=== PATIENT | male | born 1965 | race Caucasian/White ===

== ENCOUNTER 2017-03-13 16:03 | Emergency (ER) | payer OTHER, MEDICARE ==
[2017-03-13] MEDS ORDERED: ALBUTEROL SULFATE 0.083% NEB 2.5 MG/3 ML AMPUL NEB ONE (18:08)
--- NOTE | 2017-03-13 18:33 | RADIOLOGY REPORT (SQ) ---
EXAM DESCRIPTION: CHEST PA/LAT COMPLETED DATE/TIME: 03/13/2017 6:25 pm REASON FOR STUDY: cough COMPARISON: None. EXAM PARAMETERS: NUMBER OF VIEWS: two views TECHNIQUE: Digital Frontal and Lateral radiographic views of the chest acquired. RADIATION DOSE: NA LIMITATIONS: none FINDINGS: LUNGS AND PLEURA: No opacities, masses or pneumothorax. No pleural effusion. MEDIASTINUM AND HILAR STRUCTURES: No masses or contour abnormalities. HEART AND VASCULAR STRUCTURES: Heart normal size. No evidence for failure. BONES: No acute findings. HARDWARE: None in the chest. OTHER: No other significant finding. IMPRESSION: NO SIGNIFICANT RADIOGRAPHIC FINDING IN THE CHEST. TECHNICAL DOCUMENTATION: JOB ID: [id number] [employer]- All Rights Reserved
[2017-03-13 19:09] LABS: ABSOLUTE BASOPHILS # (AUTO) 0.1 10^3/uL (0.0-0.2); ABSOLUTE EOSINOPHILS # (AUTO) 0.3 10^3/uL (0.0-0.6); ABSOLUTE LYMPHOCYTES (AUTO) 2.9 10^3/uL (0.5-4.7); ABSOLUTE NEUT (AUTO) 6.7 10^3/uL (1.7-8.2); BASOPHILS % (AUTO) 1.2 % (0-2); EOSINOPHILS % (AUTO) 2.4 % (0-6); HEMATOCRIT 48.2 % (37.9-51.0); HEMOGLOBIN 16.1 g/dL (13.5-17.0); HGB HCT DIFFERENCE 0.1; LYMPHOCYTES % (AUTO) 26.4 % (13-45); MEAN CORPUSCULAR HEMOGLOBIN 31.4 pg (27.0-33.4); MEAN CORPUSCULAR HGB CONC 33.4 g/dL (32.0-36.0); MEAN CORPUSCULAR VOLUME 94 fl (80-97); MONOCYTES % (AUTO) 9.2 % (3-13); RED BLOOD COUNT 5.13 10^6/uL (4.35-5.55); SEGMENTED NEUTROPHILS % (AUTO) 60.8 % (42-78); WHITE BLOOD COUNT 11.1 10^3/uL (4.0-10.5)
[2017-03-13 19:37] LABS: ALANINE AMINOTRANSFERASE 56 U/L (21-72); ALBUMIN 4.4 g/dL (3.5-5.0); ALKALINE PHOSPHATASE 81 U/L (38-126); ANION GAP 15 (5-19); ASPARTATE AMINO TRANSFERASE 26 U/L (17-59); BILIRUBIN,DIRECT 0.4 mg/dL (0.0-0.4); BILIRUBIN,TOTAL 0.5 mg/dL (0.2-1.3); BLOOD UREA NITROGEN 17 mg/dL (7-20); CALCIUM 9.3 mg/dL (8.4-10.2); CARBON DIOXIDE 27 mmol/L (22-30); CHLORIDE 105 mmol/L (98-107); CREATININE RESULT 1.37 mg/dL (0.52-1.25); GLUCOSE 102 mg/dL (75-110); POTASSIUM 4.5 mmol/L (3.6-5.0); SODIUM 146.7 mmol/L (137-145); TOTAL PROTEIN 7.9 g/dL (6.3-8.2)
--- NOTE | 2017-03-13 19:51 | ER Document Report ---
ED General - General Chief Complaint: Cough Stated Complaint: COUGH Time Seen by Provider: 03/13/17 18:08 Mode of Arrival: Ambulatory Information source: Patient Notes: Patient reports cough and congestion for approximately 1 week. He states that his chest is felt tight. He has been productive of yellow-green sputum. It is worse with exertion and better with rest. There is no significant radiation symptoms. They have been moderate and constant. Patient denies any fevers. TRAVEL OUTSIDE OF THE [place] IN LAST 30 DAYS: No - Related Data Allergies/Adverse Reactions: No Known Allergies Allergy (Unverified 03/13/17 16:24) Past Medical History - General Information source: Patient - Social History Smoking Status: Never Smoker Frequency of alcohol use: Rare Drug Abuse: None Family History: Reviewed & Not Pertinent - Past Medical History Cardiac Medical History: Reports: Hx Heart Attack, Hx Hypercholesterolemia, Hx Hypertension Pulmonary Medical History: Denies: Hx Pneumonia Neurological Medical History: Denies: Hx Migraine, Hx Seizures Endocrine Medical History: Reports: Hx Diabetes Mellitus Type 2 Renal/ Medical History: Reports: Hx Kidney Stones. Denies: Hx Peritoneal Dialysis GI Medical History: Reports: Hx Gastroesophageal Reflux Disease, Hx Hiatal Hernia. Denies: Hx Ulcer Psychiatric Medical History: Denies: Hx Schizophrenia Past Surgical History: Reports: Hx Appendectomy, Hx Bowel Surgery - x4, Hx Cardiac Catheterization, Hx Cardiac Surgery, Hx Oral Surgery Review of Systems - Review of Systems Constitutional: Chills, Malaise. denies: Fever Cardiovascular: Chest pain, Dyspnea Respiratory: Cough, Short of breath -: Yes All other systems reviewed and negative Physical Exam - Vital signs Vitals: Temp Pulse Resp BP Pulse Ox 99.0 F 93 23 H 136/89 H 94 03/13/17 16:17 03/13/17 16:17 03/13/17 16:17 03/13/17 16:17 03/13/17 16:17 Interpretation: Hypertensive - General General appearance: Appears well, Alert - HEENT Head: Normocephalic, Atraumatic Eyes: Normal Pupils: PERRL - Respiratory Respiratory status: No respiratory distress Chest status: Nontender Breath sounds: Normal Chest palpation: Normal - Cardiovascular Rhythm: Regular Heart sounds: Normal auscultation Murmur: No - Abdominal Inspection: Normal Distension: No distension Bowel sounds: Normal Tenderness: Nontender Organomegaly: No organomegaly - Back Back: Normal, Nontender - Extremities General upper extremity: Normal inspection, Nontender, Normal color, Normal ROM , Normal temperature General lower extremity: Normal inspection, Nontender, Normal color, Normal ROM , Normal temperature, Normal weight bearing. No: Mahendra's sign - Neurological Neuro grossly intact: Yes Cognition: Normal Orientation: AAOx4 Derek Coma Scale Eye Opening: Spontaneous Derek Coma Scale Verbal: Oriented [place] Coma Scale Motor: Obeys Commands [place] Coma Scale Total: 15 Speech: Normal Motor strength normal: LUE, RUE, LLE, RLE Sensory: Normal - Psychological Associated symptoms: Normal affect, Normal mood - Skin Skin Temperature: Warm Skin Moisture: Dry Skin Color: Normal Course - Vital Signs Vital signs: Temp Pulse Resp BP Pulse Ox 99.0 F 93 20 136/89 H 94 03/13/17 16:17 03/13/17 16:17 03/13/17 17:59 03/13/17 16:17 03/13/17 16:17 - Laboratory Result Diagrams: 03/13/17 18:50 03/13/17 18:50 Laboratory results interpreted by me: 03/13/17 03/13/17 18:50 18:50 WBC 11.1 H RDW 15.0 H Sodium 146.7 H Creatinine 1.37 H Est GFR (Non-Af Amer) 55 L - Diagnostic Test Radiology reviewed: Image reviewed, Reports reviewed - nad on chest xray Discharge - Discharge Clinical Impression: URI (upper respiratory infection) Qualifiers: URI type: unspecified URI Qualified Code(s): J06.9 - Acute upper respiratory infection, unspecified Condition: Stable Disposition: HOME, SELF-CARE Instructions: Upper Respiratory Illness ([facility]) Additional Instructions: Please call your family doctor to arrange follow-up as soon as possible Prescriptions: Albuterol Sulfate [Ventolin HFA MDI 18 GM] 1 - 2 puff IH Q4H PRN #1 mdi PRN Reason: Cefdinir 300 mg PO BID #14 capsule Forms: Return to Work
[2017-03-13 20:07] VITALS: BP 144/84
--- NOTE | 2017-03-13 21:23 | EKG REPORT ---
SEVERITY:- ABNORMAL ECG - SINUS RHYTHM LOW VOLTAGE IN FRONTAL LEADS NONSPECIFIC T ABNORMALITIES, LATERAL LEADS : Confirmed by: Thania Trujillo 13-Mar-2017 21:23:09
== END 2017-03-13 20:03 | disposition home or self-care (01) ==
LOC: ER 16:03
DX: J06.9 Acute upper respiratory infection, unspecified (principal); R53.81 Other malaise; E78.00 Pure hypercholesterolemia, unspecified; I10 Essential (primary) hypertension; E11.9 Type 2 diabetes mellitus without complications; I25.2 Old myocardial infarction; Z87.442 Personal history of urinary calculi
CPT/HCPCS: 36415; 71020; 80053; 85025; 93005; 93010; 94640; 99284

== ENCOUNTER 2017-05-04 13:52 | Emergency (ER) | payer OTHER, MEDICARE ==
[2017-05-04] MEDS ORDERED: NORMAL SALINE 1000 ML 1,000 ML IV ONE (14:17)
[2017-05-04] MEDS ORDERED: MORPHINE SULFATE 10 MG/ML INJ IV ONE ×2 (14:17→16:57)
--- NOTE | 2017-05-04 14:18 | ER Document Report ---
ED Medical Screen (RME) - General Chief Complaint: Flank Pain Stated Complaint: RIGHT SIDE PAIN Time Seen by Provider: 05/04/17 14:16 Notes: Patient presents with the onset of severe right flank pain this morning. He states in the past when he had this pain it was because he was showering emboli and he ended up with damage to his kidneys spleen and heart. He states he is currently on his warfarin. He denies any history recently of lifting or trauma. TRAVEL OUTSIDE OF THE [place] IN LAST 30 DAYS: No - Related Data Allergies/Adverse Reactions: No Known Allergies Allergy (Verified 05/04/17 13:53) Past Medical History - Past Medical History Cardiac Medical History: Reports: Hx Heart Attack, Hx Hypercholesterolemia, Hx Hypertension Pulmonary Medical History: Denies: Hx Pneumonia Neurological Medical History: Denies: Hx Migraine, Hx Seizures Endocrine Medical History: Reports: Hx Diabetes Mellitus Type 2 Renal/ Medical History: Reports: Hx Kidney Stones. Denies: Hx Peritoneal Dialysis GI Medical History: Reports: Hx Gastroesophageal Reflux Disease, Hx Hiatal Hernia. Denies: Hx Ulcer Psychiatric Medical History: Denies: Hx Schizophrenia Past Surgical History: Reports: Hx Appendectomy, Hx Bowel Surgery - x4, Hx Cardiac Catheterization, Hx Cardiac Surgery, Hx Oral Surgery - Immunizations History of Influenza Vaccine for 02/2017 - 07/2017 Season: No Physical Exam - Vital signs Vitals: Temp Pulse Resp BP Pulse Ox 97.7 F 92 20 155/122 H 94 05/04/17 14:00 05/04/17 14:00 05/04/17 14:00 05/04/17 14:00 05/04/17 14:00 Course - Vital Signs Vital signs: Temp Pulse Resp BP Pulse Ox 97.7 F 92 20 155/122 H 94 05/04/17 14:00 05/04/17 14:00 05/04/17 14:00 05/04/17 14:00 05/04/17 14:00
[2017-05-04 14:41] LABS: APPEARANCE,URINE SLIGHTLY-CLOUDY; BILIRUBIN,URINE NEGATIVE (NEGATIVE); GLUCOSE, URINE NEGATIVE (NEGATIVE); KETONES,URINE NEGATIVE (NEGATIVE); LEUKOCYTE ESTERASE,URINE NEGATIVE (NEGATIVE); NITRITE,URINE NEGATIVE (NEGATIVE); PROTEIN,URINE 100 mg/dL (NEGATIVE); URINE SPECIFIC GRAVITY 1.019; UROBILINOGEN,URINE NEGATIVE mg/dL (<2.0)
[2017-05-04 14:58] LABS: ABSOLUTE BASOPHILS # (AUTO) 0.1 10^3/uL (0.0-0.2); ABSOLUTE EOSINOPHILS # (AUTO) 0.1 10^3/uL (0.0-0.6); ABSOLUTE LYMPHOCYTES (AUTO) 1.8 10^3/uL (0.5-4.7); ABSOLUTE MONOCYTES (AUTO) 0.6 10^3/uL (0.1-1.4); BASOPHILS % (AUTO) 1.4 % (0-2); HEMATOCRIT 48.1 % (37.9-51.0); HEMOGLOBIN 16.3 g/dL (13.5-17.0); HGB HCT DIFFERENCE 0.8; LYMPHOCYTES % (AUTO) 20.8 % (13-45); MEAN CORPUSCULAR HEMOGLOBIN 31.4 pg (27.0-33.4); MEAN CORPUSCULAR VOLUME 93 fl (80-97); MONOCYTES % (AUTO) 6.7 % (3-13); RED CELL DISTRIBUTION WIDTH 14.6 % (11.5-14.0); SEGMENTED NEUTROPHILS % (AUTO) 70.1 % (42-78); WHITE BLOOD COUNT 8.6 10^3/uL (4.0-10.5)
[2017-05-04 15:08] LABS: PROTHROMBIN TIME 16.4 SEC (11.4-15.4)
[2017-05-04 15:17] LABS: ALANINE AMINOTRANSFERASE 52 U/L (21-72); ALBUMIN 4.3 g/dL (3.5-5.0); ALKALINE PHOSPHATASE 84 U/L (38-126); ANION GAP 14 (5-19); ASPARTATE AMINO TRANSFERASE 26 U/L (17-59); BILIRUBIN,DIRECT 0.2 mg/dL (0.0-0.4); BILIRUBIN,TOTAL 0.4 mg/dL (0.2-1.3); BLOOD UREA NITROGEN 16 mg/dL (7-20); CALCIUM 9.5 mg/dL (8.4-10.2); CARBON DIOXIDE 26 mmol/L (22-30); CHLORIDE 104 mmol/L (98-107); CREATININE RESULT 1.26 mg/dL (0.52-1.25); GLUCOSE 159 mg/dL (75-110); POTASSIUM 4.3 mmol/L (3.6-5.0); SODIUM 143.9 mmol/L (137-145); TOTAL PROTEIN 7.8 g/dL (6.3-8.2)
--- NOTE | 2017-05-04 15:21 | ER Document Report ---
ED GI/ - General Chief Complaint: Flank Pain Stated Complaint: RIGHT SIDE PAIN Time Seen by Provider: 05/04/17 14:16 Notes: 51 years old male with a history of thrombosis, on blood thinners, presents today with left flank pain prior to arrival. Radiating to the groin. Associated with nausea no vomiting. Denies any hematuria dysuria frequency urgency. He says when he gave the urine today in the ER he saw in the collecting A small stone on the bottom. Currently feel comfortable after being given morphine. TRAVEL OUTSIDE OF THE [place] IN LAST 30 DAYS: No - Related Data Allergies/Adverse Reactions: No Known Allergies Allergy (Verified 05/04/17 13:53) Past Medical History - Social History Smoking Status: Never Smoker Chew tobacco use (# tins/day): No Frequency of alcohol use: None Drug Abuse: None Family History: Reviewed & Not Pertinent Patient has suicidal ideation: No Patient has homicidal ideation: No - Past Medical History Cardiac Medical History: Reports: Hx Heart Attack, Hx Hypercholesterolemia, Hx Hypertension Pulmonary Medical History: Denies: Hx Pneumonia Neurological Medical History: Denies: Hx Migraine, Hx Seizures Endocrine Medical History: Reports: Hx Diabetes Mellitus Type 2 Renal/ Medical History: Reports: Hx Kidney Stones. Denies: Hx Peritoneal Dialysis GI Medical History: Reports: Hx Gastroesophageal Reflux Disease, Hx Hiatal Hernia. Denies: Hx Ulcer Psychiatric Medical History: Denies: Hx Schizophrenia Past Surgical History: Reports: Hx Appendectomy, Hx Bowel Surgery - x4, Hx Cardiac Catheterization, Hx Cardiac Surgery, Hx Oral Surgery Review of Systems - Review of Systems Notes: REVIEW OF SYSTEMS: CONSTITUTIONAL : Denies fever, chills, or sweats. Denies recent illness. EENT: Denies eye, ear, throat, or mouth pain or symptoms. Denies nasal or sinus congestion or discharge. Denies throat, tongue, or mouth swelling or difficulty swallowing. CARDIOVASCULAR: Denies chest pain. Denies palpitations or racing or irregular heart beat. Denies ankle edema. RESPIRATORY: Denies cough, cold, or chest congestion. Denies shortness of breath, difficulty breathing, or wheezing. GASTROINTESTINAL: Denies abdominal pain or distention. Denies nausea, vomiting , or diarrhea. Denies blood in vomitus, stools, or per rectum. Denies black, tarry stools. Denies constipation. GENITOURINARY: Denies difficulty urinating, painful urination, burning, frequency, blood in urine, or discharge. MUSCULOSKELETAL: Denies back or neck pain or stiffness. Denies joint pain or swelling. SKIN: Denies rash, lesions or sores. HEMATOLOGIC : Denies easy bruising or bleeding. LYMPHATIC: Denies swollen, enlarged glands. NEUROLOGICAL: Denies confusion or altered mental status. Denies passing out or loss of consciousness. Denies dizziness or lightheadedness. Denies headache. Denies weakness or paralysis or loss of use of either side. Denies problems with gait or speech. Denies sensory loss, numbness, or tingling. Denies seizures. PSYCHIATRIC: Denies anxiety or stress. Denies depression, suicidal ideation, or homicidal ideation. ALL OTHER SYSTEMS REVIEWED AND NEGATIVE. Dictation was performed using [employer] voice recognition software morbidly obese PHYSICAL EXAMINATION: GENERAL: Well-appearing, well-nourished and in no acute distress. HEAD: Atraumatic, normocephalic. EYES: Pupils equal round and reactive to light, extraocular movements intact, sclera anicteric, conjunctiva are normal. ENT: Nares patent, oropharynx clear without exudates. Moist mucous membranes. NECK: Normal range of motion, supple without lymphadenopathy LUNGS: Breath sounds clear to auscultation bilaterally and equal. No wheezes rales or rhonchi. HEART: Regular rate and rhythm without murmurs Back: Right flank tenderness on palpation noted. ABDOMEN: Soft, nontender, nondistended abdomen. No guarding, no rebound. No masses appreciated. Musculoskeletal: Normal range of motion, no pitting or edema. No cyanosis. NEUROLOGICAL: Cranial nerves grossly intact. Normal speech, normal gait. Normal sensory, motor exams PSYCH: Normal mood, normal affect. SKIN: Warm, Dry, normal turgor, no rashes or lesions noted. Physical Exam - Vital signs Vitals: Temp Pulse Resp BP Pulse Ox 97.7 F 92 20 155/122 H 94 05/04/17 14:00 05/04/17 14:00 05/04/17 14:00 05/04/17 14:00 05/04/17 14:00 Course - Re-evaluation Re-evalutation: 05/04/17 17:59 Relatively comfortable - Vital Signs Vital signs: Temp Pulse Resp BP Pulse Ox 97.7 F 92 20 155/122 H 94 05/04/17 14:00 05/04/17 14:00 05/04/17 14:00 05/04/17 14:00 05/04/17 14:00 - Laboratory Result Diagrams: 05/04/17 14:40 05/04/17 14:40 Laboratory results interpreted by me: 05/04/17 05/04/17 05/04/17 14:23 14:40 14:40 RDW 14.6 H PT 16.4 H Creatinine Glucose Urine Protein 100 H Urine Blood LARGE H 05/04/17 14:40 RDW PT Creatinine 1.26 H Glucose 159 H Urine Protein Urine Blood - Diagnostic Test Radiology results interpreted by me: 05/04/17 17:59 CT abdomen stone protocol reported as intra-parenchymal stone no ureteric stone. This was explained to the patient. He requested more pain medications 1 hour ago was given morphine. Discharge - Discharge Clinical Impression: Renal stone, Anticoagulation goal of INR 1.5 to 2.5 Hematuria Qualifiers: Hematuria type: other microscopic Qualified Code(s): R31.29 - Other microscopic hematuria; R31.2 - Other microscopic hematuria Condition: Fair Disposition: HOME, SELF-CARE Instructions: Kidney Stone ([facility]) Prescriptions: Ondansetron [Zofran Odt 4 mg Tablet] 4 mg PO Q4HP PRN #10 tab.rapdis PRN Reason: Hydrocodone/Acetaminophen [Accokeek 5-325 mg Tablet] 1 tab PO BID PRN #10 tablet PRN Reason:
--- NOTE | 2017-05-04 16:50 | RADIOLOGY REPORT (SQ) ---
EXAM DESCRIPTION: CT LTD RENAL STONE PROTOCOL ON COMPLETED DATE/TIME: 05/04/2017 4:29 pm REASON FOR STUDY: Renal stone COMPARISON: None. TECHNIQUE: CT scan of the abdomen and pelvis performed without intravenous or oral contrast. Images reviewed with lung, soft tissue, and bone windows. Reconstructed coronal and sagittal MPR images revi ewed. All images stored on PACS. All CT scanners at this facility use dose modulation, iterative reconstruction, and/or weight based d osing when appropriate to reduce radiation dose to as low as reasonably achievable (ALARA). [facility]: Dose Right [facility]: CareDose [facility]: Dose Right [facility]: Teradose 4D [facility]: Smart [employer] RADIATION DOSE: CT Rad equipment meets quality standard of care and radiation dose reduction techniq ues were employed. CTDIvol: 19.2 mGy. DLP: 1178 mGy-cm.mGy. LIMITATIONS: None. FINDINGS: LOWER CHEST: No significant findings. No nodules or infiltrates. NON-CONTRASTED LIVER, SPLEEN, ADRENALS: Fatty liver, sparing along the gallbladder fossa. Hypertroph y left lobe liver, small right lobe liver. Spleen is small and nodular in appearance, question prior splenic infarct or partial splenectomy. PANCREAS: No masses. No peripancreatic inflammatory changes. GALLBLADDER: No identified stones by CT criteria. No inflammatory changes to suggest cholecystitis. RIGHT KIDNEY AND URETER: There is scarring along the right upper pole kidney, with atrophy of the upp er half of the right kidney. Wedge like scarring in the right lower pole kidney. No discrete cystic or solid lesions. There are 2 small less than 5 mm intrarenal nonobstructive stones in the right lo wer pole kidney on coronal image 15. No right ureteral calculi, or right hydronephrosis or hydrouret er. LEFT KIDNEY AND URETER: No suspicious masses. Assessment limited by lack of IV contrast. No signifi cant calcifications. No hydronephrosis or hydroureter. AORTA AND RETROPERITONEUM: No aneurysm. No retroperitoneal masses or adenopathy. BOWEL AND PERITONEAL CAVITY: No CT evidence of bowel obstruction or free intraperitoneal air or fluid . Patient is post left hemicolectomy, and partial resection of the right colon with a right-sided il eocolic anastomosis. APPENDIX: Surgically absent PELVIS, BLADDER, AND ABDOMINAL WALL:No abnormal masses. No free fluid. Bladder normal. BONES: No significant findings. OTHER: No other significant finding. IMPRESSION: Right-sided intrarenal nonobstructive stones. No right hydronephrosis or hydroureter. Left hemicolectomy, partial resection of the right colon. Fatty liver with hypertrophy of the left lobe COMMENT: Quality ID # [id number]: Final reports with documentation of one or more dose reduction techniques (e.g., Automated exposure control, adjustment of the mA and/or kV according to patient size, use of iterative reconstruction technique) TECHNICAL DOCUMENTATION: JOB ID: [id number] [email or web address]- All Rights Reserved
[2017-05-04 18:25] VITALS: BP 155/110
== END 2017-05-04 18:25 | disposition home or self-care (01) ==
LOC: ER 13:52
DX: N20.0 Calculus of kidney (principal); R31.29 Other microscopic hematuria; R10.9 Unspecified abdominal pain; R11.0 Nausea; I25.2 Old myocardial infarction; I10 Essential (primary) hypertension; E11.9 Type 2 diabetes mellitus without complications; I82.90 Acute embolism and thrombosis of unspecified vein; Z79.01 Long term (current) use of anticoagulants; Z90.49 Acquired absence of other specified parts of digestive tract; Z87.19 Personal history of other diseases of the digestive system
CPT/HCPCS: 96376; 99284; 96361; 96374; 36415; 85025; 85610; 80053; 81001; 76380; J2270; J7030

== ENCOUNTER 2017-05-11 04:19 | Emergency (ER) | payer OTHER, MEDICARE ==
[2017-05-11] MEDS ORDERED: KETOROLAC TROMETHAMINE 60 MG/2 ML SDV IM ONE (05:22)
--- NOTE | 2017-05-11 05:25 | ER Document Report ---
ED GI/ - General Chief Complaint: Flank Pain Stated Complaint: FLANK PAIN Time Seen by Provider: 05/11/17 05:17 Notes: 51 years old male comes in with right flank pain, claiming he has kidney stone. He was seen by me couple weeks ago, diagnosed as intrarenal stone on the right side, there were no ureteric stone at home. He denies any hematuria fever chills dysuria or frequency. TRAVEL OUTSIDE OF THE [place] IN LAST 30 DAYS: No - Related Data Allergies/Adverse Reactions: No Known Allergies Allergy (Verified 05/04/17 13:53) Past Medical History - Social History Smoking Status: Smoker,Current Status Unk Family History: Reviewed & Not Pertinent - Past Medical History Cardiac Medical History: Reports: Hx Heart Attack, Hx Hypercholesterolemia, Hx Hypertension Pulmonary Medical History: Denies: Hx Pneumonia Neurological Medical History: Denies: Hx Migraine, Hx Seizures Endocrine Medical History: Reports: Hx Diabetes Mellitus Type 2 Renal/ Medical History: Reports: Hx Kidney Stones. Denies: Hx Peritoneal Dialysis GI Medical History: Reports: Hx Gastroesophageal Reflux Disease, Hx Hiatal Hernia. Denies: Hx Ulcer Psychiatric Medical History: Denies: Hx Schizophrenia Past Surgical History: Reports: Hx Appendectomy, Hx Bowel Surgery - x4, Hx Cardiac Catheterization, Hx Cardiac Surgery, Hx Oral Surgery Review of Systems - Review of Systems Notes: REVIEW OF SYSTEMS: CONSTITUTIONAL : Denies fever, chills, or sweats. Denies recent illness. EENT: Denies eye, ear, throat, or mouth pain or symptoms. Denies nasal or sinus congestion or discharge. Denies throat, tongue, or mouth swelling or difficulty swallowing. CARDIOVASCULAR: Denies chest pain. Denies palpitations or racing or irregular heart beat. Denies ankle edema. RESPIRATORY: Denies cough, cold, or chest congestion. Denies shortness of breath, difficulty breathing, or wheezing. GASTROINTESTINAL: Denies abdominal pain or distention. Denies nausea, vomiting , or diarrhea. Denies blood in vomitus, stools, or per rectum. Denies black, tarry stools. Denies constipation. GENITOURINARY: Denies difficulty urinating, painful urination, burning, frequency, blood in urine, or discharge. MUSCULOSKELETAL: Denies back or neck pain or stiffness. Denies joint pain or swelling. SKIN: Denies rash, lesions or sores. HEMATOLOGIC : Denies easy bruising or bleeding. LYMPHATIC: Denies swollen, enlarged glands. NEUROLOGICAL: Denies confusion or altered mental status. Denies passing out or loss of consciousness. Denies dizziness or lightheadedness. Denies headache. Denies weakness or paralysis or loss of use of either side. Denies problems with gait or speech. Denies sensory loss, numbness, or tingling. Denies seizures. PSYCHIATRIC: Denies anxiety or stress. Denies depression, suicidal ideation, or homicidal ideation. ALL OTHER SYSTEMS REVIEWED AND NEGATIVE. Dictation was performed using [employer] voice recognition software PHYSICAL EXAMINATION: GENERAL: Well-appearing, well-nourished and in no acute distress. HEAD: Atraumatic, normocephalic. EYES: Pupils equal round and reactive to light, extraocular movements intact, sclera anicteric, conjunctiva are normal. ENT: Nares patent, oropharynx clear without exudates. Moist mucous membranes. NECK: Normal range of motion, supple without lymphadenopathy LUNGS: Breath sounds clear to auscultation bilaterally and equal. No wheezes rales or rhonchi. HEART: Regular rate and rhythm without murmurs ABDOMEN: Soft, nontender, nondistended abdomen. No guarding, no rebound. No masses appreciated. Examination of the flank: In appropriate response to pain by gentle touch on the right flank Musculoskeletal: Normal range of motion, no pitting or edema. No cyanosis. NEUROLOGICAL: Cranial nerves grossly intact. Normal speech, normal gait. Normal sensory, motor exams PSYCH: Normal mood, normal affect. SKIN: Warm, Dry, normal turgor, no rashes or lesions noted. Physical Exam - Vital signs Vitals: Temp Pulse Resp BP Pulse Ox 97.9 F 84 20 179/105 H 93 05/11/17 04:31 05/11/17 04:31 05/11/17 04:31 05/11/17 04:31 05/11/17 04:31 Course - Re-evaluation Re-evalutation: 05/11/17 07:50 Urine tox screen indicated that he is on benzodiazepine and opioids. Patient denied taking any opioid medications. - Vital Signs Vital signs: Temp Pulse Resp BP Pulse Ox 97.9 F 84 20 179/105 H 93 05/11/17 04:31 05/11/17 04:31 05/11/17 04:31 05/11/17 04:31 05/11/17 04:31 - Laboratory Result Diagrams: 05/11/17 05:55 05/11/17 05:55 Laboratory results interpreted by me: 05/11/17 05/11/17 05/11/17 05:09 05:55 05:55 WBC 12.1 H RDW 14.5 H Absolute Neutrophils 9.2 H Creatinine 1.34 H Est GFR (Non-Af Amer) 56 L Glucose 183 H Urine Protein 100 H Urine Blood LARGE H Discharge - Discharge Clinical Impression: Chronic pain syndrome Rheumatoid arthritis Qualifiers: Rheumatoid arthritis location: multiple sites Rheumatoid factor presence: unspecified presence Qualified Code(s): M06.9 - Rheumatoid arthritis, unspecified Sinusitis Qualifiers: Sinusitis location: maxillary Condition: Fair Disposition: HOME, SELF-CARE Instructions: Rheumatoid Arthritis ([facility]) Prescriptions: Methylprednisolone [Medrol Dosepack (4 mg/Tab) 21 Tab/Dosepak] 4 mg PO ASDIR PRN #21 tab.ds.pk PRN Reason:
[2017-05-11 05:46] LABS: APPEARANCE,URINE CLOUDY; BILIRUBIN,URINE NEGATIVE (NEGATIVE); GLUCOSE, URINE NEGATIVE (NEGATIVE); KETONES,URINE NEGATIVE (NEGATIVE); LEUKOCYTE ESTERASE,URINE NEGATIVE (NEGATIVE); NITRITE,URINE NEGATIVE (NEGATIVE); PROTEIN,URINE 100 mg/dL (NEGATIVE); URINE SPECIFIC GRAVITY 1.028; UROBILINOGEN,URINE NEGATIVE mg/dL (<2.0)
[2017-05-11 06:20] LABS: ABSOLUTE BASOPHILS # (AUTO) 0.1 10^3/uL (0.0-0.2); ABSOLUTE EOSINOPHILS # (AUTO) 0.1 10^3/uL (0.0-0.6); ABSOLUTE LYMPHOCYTES (AUTO) 1.8 10^3/uL (0.5-4.7); ABSOLUTE MONOCYTES (AUTO) 0.9 10^3/uL (0.1-1.4); ABSOLUTE NEUT (AUTO) 9.2 10^3/uL (1.7-8.2); BASOPHILS % (AUTO) 0.8 % (0-2); EOSINOPHILS % (AUTO) 1.1 % (0-6); HEMOGLOBIN 15.9 g/dL (13.5-17.0); HGB HCT DIFFERENCE 0.7; LYMPHOCYTES % (AUTO) 14.7 % (13-45); MEAN CORPUSCULAR HEMOGLOBIN 31.3 pg (27.0-33.4); MEAN CORPUSCULAR HGB CONC 33.8 g/dL (32.0-36.0); MEAN CORPUSCULAR VOLUME 93 fl (80-97); MONOCYTES % (AUTO) 7.6 % (3-13); RED BLOOD COUNT 5.07 10^6/uL (4.35-5.55); RED CELL DISTRIBUTION WIDTH 14.5 % (11.5-14.0); SEGMENTED NEUTROPHILS % (AUTO) 75.8 % (42-78); WHITE BLOOD COUNT 12.1 10^3/uL (4.0-10.5)
[2017-05-11 06:38] LABS: ALANINE AMINOTRANSFERASE 54 U/L (21-72); ALBUMIN 4.1 g/dL (3.5-5.0); ALKALINE PHOSPHATASE 86 U/L (38-126); ANION GAP 13 (5-19); ASPARTATE AMINO TRANSFERASE 35 U/L (17-59); BILIRUBIN,DIRECT 0.3 mg/dL (0.0-0.4); BILIRUBIN,TOTAL 0.4 mg/dL (0.2-1.3); BLOOD UREA NITROGEN 18 mg/dL (7-20); CALCIUM 9.7 mg/dL (8.4-10.2); CARBON DIOXIDE 25 mmol/L (22-30); CHLORIDE 104 mmol/L (98-107); CREATININE RESULT 1.34 mg/dL (0.52-1.25); GLUCOSE 183 mg/dL (75-110); POTASSIUM 3.9 mmol/L (3.6-5.0); SODIUM 142.1 mmol/L (137-145); TOTAL PROTEIN 7.4 g/dL (6.3-8.2)
--- NOTE | 2017-05-11 06:40 | RADIOLOGY REPORT (SQ) ---
EXAM DESCRIPTION: CT LTD RENAL STONE PROTOCOL ON CLINICAL HISTORY: 51 years Male, R Flank Pain, Eval for kidney stone COMPARISON: None. TECHNIQUE: No contrast. Coronal and sagittal reformat. This exam was performed according to our departmental dose-optimization program, which includes automated exposure control, adjustment of the mA and/or kV according to patient size and/or use of iterative reconstruction technique. FINDINGS: A 0.3 cm right mid ureteral stone at the L4 level, mild right hydronephrosis, minimal right hydroureter, moderate right perinephric fat stranding, mild periureteral fat stranding, moderate right renal scar and atrophy of the upper pole. 0.2 cm right renal stone. Mild hepatic steatosis. Macrolobulated small-moderate spleen which may indicate partial involution. Mild diffuse sigmoid bowel wall thickening. Partial colon resection. Scattered bowel loops are closely positioned/adherent to the peritoneum of the left paracentral abdomen may indicate adhesive disease. Mild lymphadenopathy in bilateral anterior pelvis measuring up to 1.9 cm on the right. Small coronary calcification. Mild lower lumbar spondylosis. Inferior chest, pancreas, adrenals, gastrointestinal tract, pelvic organs, vasculature, and musculoskeleton appear otherwise unremarkable. IMPRESSION: 1. A 0.3 cm right mid ureteral stone with low-grade obstruction. 2. Mild sigmoid colitis pattern.
[2017-05-11 06:48] LABS: URINE BARBITURATES SCREEN NEGATIVE; URINE METHADONE SCREEN NEGATIVE; URINE OPIATES LOW UNCONFIRMED POSITIVE; URINE PHENCYCLIDINE SCREEN NEGATIVE
[2017-05-11] MEDS ORDERED: ONDANSETRON HCL INJ/PF 4 MG/2 ML SDV PO ONE (07:59)
[2017-05-11] MEDS ORDERED: MORPHINE SULFATE 10 MG/ML INJ IM ONE (07:59)
[2017-05-11 08:50] VITALS: BP 157/91
[2017-05-11] MEDS ORDERED: ONDANSETRON 4 MG TAB.RAPDIS PO ONE (08:58)
[2017-05-11] MEDS ORDERED: ONDANSETRON 4 MG TAB.RAPDIS ONE (09:00)
== END 2017-05-11 09:11 | disposition home or self-care (01) ==
LOC: ER 04:19
DX: R10.9 Unspecified abdominal pain (principal); M06.9 Rheumatoid arthritis, unspecified; G89.4 Chronic pain syndrome; I10 Essential (primary) hypertension; I25.2 Old myocardial infarction; E11.9 Type 2 diabetes mellitus without complications; Z90.49 Acquired absence of other specified parts of digestive tract
CPT/HCPCS: 99284; 96372; 36415; 85025; 80053; 81001; 80307; 76380; J1885; S0119; J2270

== ENCOUNTER 2017-06-21 12:52 | Emergency (ER) | payer OTHER, MEDICARE ==
[2017-06-21 13:00] VITALS: BP 135/98
[2017-06-21] MEDS ORDERED: PREDNISONE 20 MG TABLET PO ONE (13:35)
--- NOTE | 2017-06-21 13:39 | ER Document Report ---
HPI - HPI Patient complains to provider of: Right ankle pain Onset: Other - 2 days Onset/Duration: Persistent Quality of pain: Achy Pain Level: 4 Context: Patient presents complaining of right ankle pain for the past 2 days. Patient denies any fever or injury. Patient states he had a similar episode several months ago and is concerned that he may have gout. Associated Symptoms: Other - Right ankle pain. denies: Fever Exacerbated by: Standing, Movement, Walking Relieved by: Denies Similar symptoms previously: Yes Recently seen / treated by doctor: No - ROS ROS below otherwise negative: Yes Systems Reviewed and Negative: Yes All other systems reviewed and negative - CONSTITUTIONAL Constitutional: DENIES: Fever, Chills - GASTROINTESTINAL Gastrointestinal: DENIES: Nausea - MUSCULOSKELETAL Musculoskeletal: REPORTS: Extremity pain. DENIES: Swelling - DERM Skin Color: Normal Skin Problems: None Past Medical History - General Information source: Patient - Social History Smoking Status: Never Smoker Frequency of alcohol use: None Drug Abuse: None Occupation: None Lives with: Family Family History: Reviewed & Not Pertinent - Past Medical History Cardiac Medical History: Reports: Hx Heart Attack, Hx Hypercholesterolemia, Hx Hypertension Pulmonary Medical History: Denies: Hx Pneumonia Neurological Medical History: Denies: Hx Migraine, Hx Seizures Endocrine Medical History: Reports: Hx Diabetes Mellitus Type 2 Renal/ Medical History: Reports: Hx Kidney Stones. Denies: Hx Peritoneal Dialysis GI Medical History: Reports: Hx Gastroesophageal Reflux Disease, Hx Hiatal Hernia. Denies: Hx Ulcer Psychiatric Medical History: Denies: Hx Schizophrenia Past Surgical History: Reports: Hx Appendectomy, Hx Bowel Surgery - x4, Hx Cardiac Catheterization, Hx Cardiac Surgery, Hx Oral Surgery Vertical Provider Document - CONSTITUTIONAL Agree With Documented VS: Yes Exam Limitations: No Limitations General Appearance: WD/WN, No Apparent Distress - INFECTION CONTROL TRAVEL OUTSIDE OF THE [place] IN LAST 30 DAYS: No - HEENT HEENT: Atraumatic, Normocephalic - NECK Neck: Normal Inspection, Supple - RESPIRATORY Respiratory: Breath Sounds Normal, No Respiratory Distress O2 Sat by Pulse Oximetry: 94 - CARDIOVASCULAR Cardiovascular: Regular Rate, Regular Rhythm Pulses: Normal: Dorsalis pedis - BACK Back: Normal Inspection - MUSCULOSKELETAL/EXTREMETIES Musculoskeletal/Extremeties: MAEW, FROM, Tender - Right ankle tenderness over medial malleolar area and posterior ankle, no edema, no erythema, No Edema. negative: Eccymosis - NEURO Level of Consciousness: Awake, Alert, Appropriate Motor/Sensory: No Motor Deficit - DERM Integumentary: Warm, Dry, No Rash Course - Re-evaluation Re-evalutation: 06/21/17 13:36 Patient presents with right ankle tenderness without history of trauma. Normal skin color and temperature overlying joint. No concern for septic joint. Patient states that he ate foods that he suspects may have triggered a gout attack. Patient denies any personal history of gout but does report a family history of gout. Patient additionally states he had a similar episode to this a few months ago and was treated with anti-inflammatory medication which helped his symptoms. Patient does have hydrocodone at home to take for pain. Review of patient's previous records demonstrates that he has had some renal insufficiency. Will instead place patient on short course of prednisone at this time - Vital Signs Vital signs: Temp Pulse Resp BP Pulse Ox 98.2 F 93 20 135/98 H 94 06/21/17 12:58 06/21/17 12:58 06/21/17 12:58 06/21/17 12:58 06/21/17 12:58 Discharge - Discharge Clinical Impression: Right ankle pain Qualifiers: Chronicity: unspecified Qualified Code(s): M25.571 - Pain in right ankle and joints of right foot Condition: Stable Disposition: HOME, SELF-CARE Instructions: Gout ([facility]), Gout Diet ([facility]), Steroid Medication Additional Instructions: Return immediately for any new or worsening symptoms Followup with your primary care provider, call tomorrow to make a followup appointment Avoid foods that may trigger a gout attack, these are foods that are high in purine Take your pain medication that you have at home as prescribed Prescriptions: Prednisone [Deltasone 20 mg Tablet] 2 tab PO DAILY 4 Days tablet Walker [Folding Walker] 1 each MC ASDIR PRN #1 each PRN Reason: Referrals: [facility] [Provider Group] - Follow up tomorrow
== END 2017-06-21 13:50 | disposition home or self-care (01) ==
LOC: ER 12:52
DX: M25.571 Pain in right ankle and joints of right foot (principal); I10 Essential (primary) hypertension; E11.9 Type 2 diabetes mellitus without complications; Z82.69 Family history of other diseases of the musculoskeletal system and connective tissue
CPT/HCPCS: 99283; J7512

== ENCOUNTER 2017-09-01 00:38 | Emergency (ER) | payer OTHER, MEDICARE ==
[2017-09-01] MEDS ORDERED: ACETAMINOPHEN 325 MG TABLET PO ONE (01:39)
[2017-09-01] MEDS ORDERED: ONDANSETRON HCL INJ/PF 4 MG/2 ML SDV IV ONE (01:39)
[2017-09-01] MEDS ORDERED: NORMAL SALINE 1000 ML 1,000 ML IV ONE ×2 (01:39→06:34)
--- NOTE | 2017-09-01 01:41 | ER Document Report ---
ED GI/ - General Chief Complaint: Nausea/Vomiting/Diarrhea Stated Complaint: VOMITING Time Seen by Provider: 09/01/17 01:31 Mode of Arrival: Ambulatory Information source: Patient Notes: Patient presents complaining of diarrhea for the past 4 days. Patient states that he will typically have 10 episodes a day. Patient reports vomiting one time today which prompted his ER visit. Patient denies any abdominal pain, urinary symptoms. Patient denies any blood in vomit or stool. Patient does complain of mild headache today. TRAVEL OUTSIDE OF THE [place] IN LAST 30 DAYS: No - HPI Patient complains to provider of: Diarrhea, Vomiting. No: Abdominal pain Onset: Other - Diarrhea 4 days Timing/Duration: Persistent Quality of pain: Achy Pain Level: 1 Associated symptoms: Diarrhea, Nausea, Vomiting. denies: Chest pain, Constipation, Urinary hesitancy, Urinary frequency Exacerbated by: Denies Relieved by: Denies Similar symptoms previously: No Recently seen / treated by doctor: No - Related Data Allergies/Adverse Reactions: No Known Allergies Allergy (Verified 06/21/17 13:38) Past Medical History - General Information source: Patient - Social History Smoking Status: Never Smoker Chew tobacco use (# tins/day): No Frequency of alcohol use: Social Drug Abuse: None Occupation: Retired Lives with: Family Family History: Reviewed & Not Pertinent Patient has suicidal ideation: No Patient has homicidal ideation: No - Past Medical History Cardiac Medical History: Reports: Hx Heart Attack, Hx Hypercholesterolemia, Hx Hypertension Pulmonary Medical History: Denies: Hx Pneumonia Neurological Medical History: Denies: Hx Migraine, Hx Seizures Endocrine Medical History: Reports: Hx Diabetes Mellitus Type 2 Renal/ Medical History: Reports: Hx Kidney Stones. Denies: Hx Peritoneal Dialysis GI Medical History: Reports: Hx Gastroesophageal Reflux Disease, Hx Hiatal Hernia. Denies: Hx Ulcer Psychiatric Medical History: Denies: Hx Schizophrenia Past Surgical History: Reports: Hx Appendectomy, Hx Bowel Surgery - x4, Hx Cardiac Catheterization, Hx Cardiac Surgery, Hx Oral Surgery Review of Systems - Review of Systems Constitutional: No symptoms reported. denies: Fever EENT: No symptoms reported Cardiovascular: No symptoms reported. denies: Chest pain Respiratory: No symptoms reported. denies: Cough, Short of breath Gastrointestinal: Diarrhea, Nausea, Vomiting. denies: Abdominal pain, Blood in vomit, Black stools, Rectal bleeding Genitourinary: No symptoms reported. denies: Dysuria, Flank pain Male Genitourinary: No symptoms reported Musculoskeletal: No symptoms reported. denies: Back pain Skin: No symptoms reported Hematologic/Lymphatic: No symptoms reported Neurological/Psychological: Headaches. denies: Confusion, Weakness Physical Exam - Vital signs Vitals: Temp Pulse Resp BP Pulse Ox 100.1 F 101 H 24 H 133/76 H 92 09/01/17 00:54 09/01/17 00:54 09/01/17 00:54 09/01/17 00:54 09/01/17 00:54 - General General appearance: Appears well, Alert In distress: None - HEENT Head: Normocephalic Eyes: Normal Nasal: Normal Mouth/Lips: Normal Mucous membranes: Normal Neck: Normal, Supple. No: Lymphadenopathy - Respiratory Respiratory status: No respiratory distress Chest status: Nontender Breath sounds: Normal. No: Rales, Rhonchi, Stridor, Wheezing Chest palpation: Normal - Cardiovascular Rhythm: Regular Heart sounds: S1 appreciated, S2 appreciated Murmur: No - Abdominal Inspection: Morbidly Obese, Other - scars from previous surgeries Distension: No distension Bowel sounds: Normal Tenderness: Tender - RUQ. No: McBurney's point, Guarding Organomegaly: No organomegaly - Back Back: Normal, Nontender. No: CVA tenderness - Extremities General upper extremity: Normal inspection, Normal ROM General lower extremity: Normal inspection, Normal ROM - Neurological Neuro grossly intact: Yes Cognition: Normal Derek Coma Scale Eye Opening: Spontaneous [place] Coma Scale Verbal: Oriented Derek Coma Scale Motor: Obeys Commands [place] Coma Scale Total: 15 - Psychological Associated symptoms: Normal affect, Normal mood - Skin Skin Temperature: Warm Skin Moisture: Dry Skin Color: Normal Course - Re-evaluation Re-evalutation: 09/01/17 06:[address] Monroy regarding patient presentation, reviewed patient's diagnostic tests. Recommends treating with Imodium and giving patient good return precautions. 09/01/17 06:34 Patient snoring, patient arouses easily to voice. Patient denies any nausea or vomiting or diarrhea at this time. Patient encouraged to obtain stool specimen if he has to have diarrhea while here today. Discussed results of patient's diagnostic tests with him. Urinalysis specimen collected. 09/01/17 08:03 IV fluids continue to infuse, patient then will be discharged. Patient and family agreeable with this discharge plan of care. Patient encouraged to CPAP machine at home every night given his very severe sleep apnea. Handoff report given to Sherice Mota PRESSFITTER. - Vital Signs Vital signs: Temp Pulse Resp BP Pulse Ox 98.5 F 101 H 27 H 138/93 H 94 09/01/17 07:39 09/01/17 00:54 09/01/17 07:24 09/01/17 07:24 09/01/17 07:24 - Laboratory Result Diagrams: 09/01/17 01:45 09/01/17 01:45 Laboratory results interpreted by me: 09/01/17 09/01/17 09/01/17 01:45 01:45 06:10 RDW 15.2 H Seg Neutrophils % 82.3 H Lymphocytes % 9.1 L Sodium 145.7 H Glucose 162 H Direct Bilirubin 0.5 H Lipase 894.1 H Urine Protein 30 H Labs- Entire Visit 09/01/17 09/01/17 09/01/17 01:45 01:45 06:10 WBC 8.1 RBC 4.99 Hgb 14.9 Hct 45.6 MCV 91 MCH 29.8 MCHC 32.6 RDW 15.2 H Plt Count 226 Seg Neutrophils % 82.3 H Lymphocytes % 9.1 L Monocytes % 6.8 Eosinophils % 1.2 Basophils % 0.6 Absolute Neutrophils 6.6 Absolute Lymphocytes 0.7 Absolute Monocytes 0.5 Absolute Eosinophils 0.1 Absolute Basophils 0.0 Sodium 145.7 H Potassium 3.7 Chloride 107 Carbon Dioxide 26 Anion Gap 13 BUN 17 Creatinine 1.10 Est GFR ( Amer) > 60 Est GFR (Non-Af Amer) > 60 Glucose 162 H Calcium 8.6 Total Bilirubin 0.8 Direct Bilirubin 0.5 H Neonat Total Bilirubin Not Reportable Neonat Direct Bilirubin Not Reportable Neonat Indirect Bili Not Reportable AST 31 ALT 43 Alkaline Phosphatase 70 Total Protein 6.9 Albumin 3.8 Lipase 894.1 H Urine Color YELLOW Urine Appearance SLIGHTLY-CLOUDY Urine pH 5.0 Ur Specific [place] 1.045 Urine Protein 30 H Urine Glucose (UA) NEGATIVE Urine Ketones NEGATIVE Urine Blood NEGATIVE Urine Nitrite NEGATIVE Urine Bilirubin NEGATIVE Urine Urobilinogen NEGATIVE Ur Leukocyte Esterase NEGATIVE Urine WBC (Auto) 0 Urine RBC (Auto) 1 Calcium Oxalate Cr Auto RARE Urine Mucus (Auto) RARE Urine Ascorbic Acid NEGATIVE - Diagnostic Test Radiology reviewed: Reports reviewed Discharge - Discharge Clinical Impression: Pancreatitis Qualifiers: Chronicity: acute Pancreatitis type: unspecified pancreatitis type Acute pancreatitis complication: unspecified Qualified Code(s): K85.90 - Acute pancreatitis without necrosis or infection, unspecified Diarrhea Qualifiers: Diarrhea type: unspecified type Qualified Code(s): R19.7 - Diarrhea, unspecified Nausea & vomiting Qualifiers: Vomiting type: unspecified Vomiting Intractability: non-intractable Qualified Code(s): R11.2 - Nausea with vomiting, unspecified Sleep apnea Qualifiers: Sleep apnea type: unspecified type Qualified Code(s): G47.30 - Sleep apnea, unspecified Condition: Stable Disposition: HOME, SELF-CARE Instructions: Antinausea Medication ([facility]), Diarrhea, Nonspecific ([facility]), Intravenous (IV) Fluids ([facility]), Pancreatitis ([facility]), Vomiting ([facility]) Additional Instructions: Return immediately for any new or worsening symptoms Followup with your primary care provider, call tomorrow to make a followup appointment You should be on a clear liquid diet and advance your diet slowly You should return for any increased abdominal pain, persistent vomiting, yellowing of the skin or eyes, fever or any other concerning symptoms Prescriptions: Loperamide HCl [Imodium 2 mg Capsule] 2 mg PO Q4HP PRN #12 cap PRN Reason: Ondansetron HCl [Zofran 4 mg Tablet] 1 - 2 tab PO Q6 PRN #15 tablet PRN Reason: Forms: Follow-Up Laboratory Testing Referrals: [facility] [Provider Group] - Follow up as needed
[2017-09-01 01:59] LABS: ABSOLUTE EOSINOPHILS # (AUTO) 0.1 10^3/uL (0.0-0.6); ABSOLUTE LYMPHOCYTES (AUTO) 0.7 10^3/uL (0.5-4.7); ABSOLUTE MONOCYTES (AUTO) 0.5 10^3/uL (0.1-1.4); ABSOLUTE NEUT (AUTO) 6.6 10^3/uL (1.7-8.2); BASOPHILS % (AUTO) 0.6 % (0-2); EOSINOPHILS % (AUTO) 1.2 % (0-6); HEMATOCRIT 45.6 % (37.9-51.0); HEMOGLOBIN 14.9 g/dL (13.5-17.0); LYMPHOCYTES % (AUTO) 9.1 % (13-45); MEAN CORPUSCULAR HEMOGLOBIN 29.8 pg (27.0-33.4); MEAN CORPUSCULAR HGB CONC 32.6 g/dL (32.0-36.0); MEAN CORPUSCULAR VOLUME 91 fl (80-97); MONOCYTES % (AUTO) 6.8 % (3-13); PLATELET COUNT 226 10^3/uL (150-450); RED BLOOD COUNT 4.99 10^6/uL (4.35-5.55); RED CELL DISTRIBUTION WIDTH 15.2 % (11.5-14.0); SEGMENTED NEUTROPHILS % (AUTO) 82.3 % (42-78); TOTAL CELLS COUNTED % (AUTO) 100 %; WHITE BLOOD COUNT 8.1 10^3/uL (4.0-10.5)
[2017-09-01 02:16] LABS: ALANINE AMINOTRANSFERASE 43 U/L (21-72); ALBUMIN 3.8 g/dL (3.5-5.0); ALKALINE PHOSPHATASE 70 U/L (38-126); ANION GAP 13 (5-19); ASPARTATE AMINO TRANSFERASE 31 U/L (17-59); BILIRUBIN,DIRECT 0.5 mg/dL (0.0-0.4); BILIRUBIN,TOTAL 0.8 mg/dL (0.2-1.3); BLOOD UREA NITROGEN 17 mg/dL (7-20); CALCIUM 8.6 mg/dL (8.4-10.2); CARBON DIOXIDE 26 mmol/L (22-30); CHLORIDE 107 mmol/L (98-107); GLUCOSE 162 mg/dL (75-110); LIPASE 894.1 U/L (23-300); POTASSIUM 3.7 mmol/L (3.6-5.0); SODIUM 145.7 mmol/L (137-145); TOTAL PROTEIN 6.9 g/dL (6.3-8.2)
--- NOTE | 2017-09-01 03:55 | RADIOLOGY REPORT (SQ) ---
EXAM DESCRIPTION: U/S ABDOMEN LIMITED W/O DOP CLINICAL HISTORY: 52 years, Male, RUQ pain COMPARISON: CT, 05/11/2017. LIMITATIONS: As below. FINDINGS: Moderate hepatic steatosis and 10 cm right kidney partially obscured. There is nonvisualization of remaining structures due to body habitus, bowel gas, and likely abdominal wall scar. IMPRESSION: Nondiagnostic exam. Moderate hepatic steatosis.
--- NOTE | 2017-09-01 05:53 | RADIOLOGY REPORT (SQ) ---
EXAM DESCRIPTION: CT ABD/PELVIS WITH IV ONLY CLINICAL HISTORY: 52 years Male, RUQ pain, +v/d, elevated lipase COMPARISON: 05.11.17 TECHNIQUE: No contrast. Coronal and sagittal reformat. This exam was performed according to our departmental dose-optimization program, which includes automated exposure control, adjustment of the mA and/or kV according to patient size and/or use of iterative reconstruction technique. FINDINGS: No free fluid. No obstruction. Pancreas has a normal CT appearance, as queried. Moderate hepatic steatosis. Small coronary arterial calcification. Macrolobulated spleen with likely benign 2.8 cm low-attenuation component not definitively characterized without suspicious interval change. Moderate right renal scar is, 0.3 cm right renal stone. Possible adhesive disease of small bowel associated with the anterior peritoneum. Minimal fat inflammation and adjacent chronic small mesenteric calcification of the mid abdomen, stable. Suture material associated with the right colon. No appendicitis. Mild lower lumbar spondylosis. Inferior thorax, gallbladder, adrenals, remaining renal system, gastrointestinal tract, pelvic organs, lymphatics, vasculature, and musculoskeleton appear otherwise unremarkable. IMPRESSION: No acute findings.
[2017-09-01] MEDS ORDERED: LOPERAMIDE HCL 2 MG CAPSULE PO ONE (06:03)
[2017-09-01 06:45] LABS: APPEARANCE,URINE SLIGHTLY-CLOUDY; BILIRUBIN,URINE NEGATIVE (NEGATIVE); CALCIUM OXALATE CRYSTALS,URINE RARE /HPF; COLOR,URINE YELLOW; GLUCOSE, URINE NEGATIVE (NEGATIVE); KETONES,URINE NEGATIVE (NEGATIVE); LEUKOCYTE ESTERASE,URINE NEGATIVE (NEGATIVE); NITRITE,URINE NEGATIVE (NEGATIVE); PROTEIN,URINE 30 mg/dL (NEGATIVE); URINE SPECIFIC GRAVITY 1.045; UROBILINOGEN,URINE NEGATIVE mg/dL (<2.0)
[2017-09-01 08:33] VITALS: BP 132/81
== END 2017-09-01 08:33 | disposition home or self-care (01) ==
LOC: ER 00:38
DX: K85.90 Acute pancreatitis without necrosis or infection, unspecified (principal); G47.30 Sleep apnea, unspecified; R11.2 Nausea with vomiting, unspecified; R19.7 Diarrhea, unspecified; R51 Headache; I10 Essential (primary) hypertension; E11.9 Type 2 diabetes mellitus without complications
CPT/HCPCS: 99284; 96361; 96374; 36415; 87040; 83690; 85025; 80053; 81001; 76705; 74177; J2405; J7030

== ENCOUNTER 2018-01-25 05:36 | Observation (INO) | payer OTHER, MEDICARE ==
[2018-01-25] MEDS ORDERED: KETOROLAC TROMETHAMINE INJ/PF 30 MG/1 ML SDV ONE (08:51)
--- NOTE | 2018-01-25 10:24 | ER Document Report ---
Doctor's Note Notes: 01/25/18 10:23 Room 14: This is a male patient in his 50s who presents with severe right flank pain. History of kidney stones. Peeing blood. Has had this happen several times. Positive for nausea and vomiting as well. Pain radiates into his testicle. Pain is rated as a 5/5 on a numeric pain scale. Cannot get comfortable. Denies any other major symptoms at this time. Past medical history: Kidney stone, hypertension, diabetes, gout, blood clots Past surgical history: Unremarkable Family history: Reviewed and unremarkable Social history: Denies any alcohol, tobacco, drug use Review of systems: Constitutional: denies: Chills, Diaphoresis, Fever, Malaise, Weakness EENT: denies: Eye discharge, Blurred vision, Tearing, Double vision, Nose congestion, Nose discharge, Throat swelling, Mouth pain Cardiovascular: denies: Palpitations, Heart racing, Orthopnea, Dyspnea, Chest pain Respiratory: denies: Cough, Hurts to breathe, Wheezing, Shortness of breath Gastrointestinal: denies: Of right flank pain, nausea, vomiting. Denies any blood in the stool or black tarry colored stools. Genitourinary: Difficult for the following: Right flank pain, hematuria. Denies any penile discharge. Does have some pain that radiates into the testicle but no testicular pain. Musculoskeletal: denies: Joint pain, Joint swelling, Muscle pain, Muscle stiffness, back pain Hematologic/Lymphatic: denies: Anemia, Easy bleeding, Easy bruising, Blood clots Neurological/Psychological: denies: Confusion, Dementia, Depression, Loss of consciousness Skin: No lesions, no masses, no skin breakdown, no abscesses Physical exam: General: Alert no acute distress, large Pickwickian individual HEENT: Atraumatic, normocephalic, pupils equal round react to light and accommodation, extraocular muscles are intact, nose is non tender, posterior pharynx is without erythema or exudate. Tongue is unremarkable Heart: Heart with regular rate and rhythm, no murmurs, no rubs, no clicks Lungs: Lungs clear to auscultation bilaterally, no wheezes, rhonchi, rales Abdomen: Abdomen is soft, nontender, nondistended, normal bowel sounds Neuro: cranial nerves II through XII intact, reflexes intact, sensation intact, Extremities:Moving all extremities. Equal strength bilaterally in the upper lower extremities. No significant deformity Skin: No lesions. Skin intact Psych: Normal insight. Normal judgment Discharge - Discharge Clinical Impression: Kidney stone on right side Respiratory failure Qualifiers: Chronicity: acute Respiratory failure complication: hypercapnia Qualified Code( s): J96.02 - Acute respiratory failure with hypercapnia Condition: Fair Disposition: ADMITTED INPATIENT Admitting Provider: [facility] Unit Admitted: [facility] Course - Re-evaluation Re-evalutation: 01/25/18 10:29 Abdomen/Pelvis CT 01/25/18 00:00 IMPRESSION: Tiny distal right ureteral calculi, causing mild right hydronephrosis and hydroureter. 01/25/18 10:47 Abdomen/Pelvis CT 01/25/18 00:00 IMPRESSION: Tiny distal right ureteral calculi, causing mild right hydronephrosis and hydroureter. Patient feeling much better at this time. Small right distal ureteral calculi. Will prescribe pain medication, nausea medicine and some Flomax. Recommend follow-up his primary care doctor. Will culture urine 01/25/18 12:30 Laboratory 01/25/18 01/25/18 01/25/18 05:57 05:57 07:59 WBC 9.3 RBC 5.03 Hgb 15.2 Hct 45.5 MCV 91 MCH 30.2 MCHC 33.4 RDW 14.8 H Plt Count 263 Seg Neutrophils % 60.1 Lymphocytes % 29.2 Monocytes % 8.1 Eosinophils % 1.2 Basophils % 1.4 Absolute Neutrophils 5.6 Absolute Lymphocytes 2.7 Absolute Monocytes 0.8 Absolute Eosinophils 0.1 Absolute Basophils 0.1 PT 13.7 INR 1.00 Carbonic Acid HCO3/H2CO3 Ratio ABG pH ABG pCO2 ABG pO2 ABG HCO3 ABG Total CO2 ABG O2 Saturation ABG Base Excess FiO2 Sodium 141.1 Potassium 4.2 Chloride 106 Carbon Dioxide 24 Anion Gap 11 BUN 18 Creatinine 1.21 Est GFR ( Amer) > 60 Est GFR (Non-Af Amer) > 60 Glucose 174 H Calcium 9.4 Total Bilirubin 0.4 Direct Bilirubin 0.3 Neonat Total Bilirubin Not Reportable Neonat Direct Bilirubin Not Reportable Neonat Indirect Bili Not Reportable AST 25 ALT 47 Alkaline Phosphatase 79 Total Protein 7.2 Albumin 3.9 Urine Color Urine Appearance Urine pH Ur Specific [place] Urine Protein Urine Glucose (UA) Urine Ketones Urine Blood Urine Nitrite Urine Bilirubin Urine Urobilinogen Ur Leukocyte Esterase Urine WBC (Auto) Urine RBC (Auto) U Hyaline Cast (Auto) Urine Bacteria (Auto) Squamous Epi Cells Auto Calcium Oxalate Cr Auto Urine Mucus (Auto) Urine Ascorbic Acid 01/25/18 01/25/18 08:45 11:20 WBC RBC Hgb Hct MCV MCH MCHC RDW Plt Count Seg Neutrophils % Lymphocytes % Monocytes % Eosinophils % Basophils % Absolute Neutrophils Absolute Lymphocytes Absolute Monocytes Absolute Eosinophils Absolute Basophils PT INR Carbonic Acid 2.25 H HCO3/H2CO3 Ratio 12:1 ABG pH 7.19 L* ABG pCO2 74.7 H* ABG pO2 82.9 ABG HCO3 27.9 H ABG Total CO2 30.2 H ABG O2 Saturation 93.1 L ABG Base Excess -2.6 FiO2 4L Sodium Potassium Chloride Carbon Dioxide Anion Gap BUN Creatinine Est GFR ( Amer) Est GFR (Non-Af Amer) Glucose Calcium Total Bilirubin Direct Bilirubin Neonat Total Bilirubin Neonat Direct Bilirubin Neonat Indirect Bili AST ALT Alkaline Phosphatase Total Protein Albumin Urine Color YELLOW Urine Appearance CLOUDY Urine pH 5.0 Ur Specific [place] 1.027 Urine Protein 100 H Urine Glucose (UA) NEGATIVE Urine Ketones NEGATIVE Urine Blood LARGE H Urine Nitrite NEGATIVE Urine Bilirubin NEGATIVE Urine Urobilinogen NEGATIVE Ur Leukocyte Esterase NEGATIVE Urine WBC (Auto) 167 Urine RBC (Auto) >182 U Hyaline Cast (Auto) 7 Urine Bacteria (Auto) TRACE Squamous Epi Cells Auto <1 Calcium Oxalate Cr Auto FEW Urine Mucus (Auto) FEW Urine Ascorbic Acid NEGATIVE Patient has a small distal UVJ stone. Patient's pain is resolved. Went to discharge patient he was found to be quite somnolent. Quite the pickwickian habitus. At this time I ordered an ABG. ABG came back showing respiratory acidosis with hypercarbia. Patient placed on BiPAP. Consulted hospitalist for admission at this time due to his abnormal blood gas. 01/25/18 15:35 - Vital Signs Vital signs: Temp Pulse Resp BP Pulse Ox 14 97 01/25/18 12:05 01/25/18 12:05 - Laboratory Result Diagrams: 01/25/18 05:57 01/25/18 07:59 Laboratory results interpreted by me: 01/25/18 01/25/18 01/25/18 05:57 07:59 08:45 RDW 14.8 H Carbonic Acid ABG pH ABG pCO2 ABG pO2 ABG HCO3 ABG Total CO2 ABG O2 Saturation Glucose 174 H Urine Protein 100 H Urine Blood LARGE H 01/25/18 01/25/18 11:20 13:15 RDW Carbonic Acid 2.25 H 1.89 H ABG pH 7.19 L* 7.23 L ABG pCO2 74.7 H* 62.8 H ABG pO2 103.2 H ABG HCO3 27.9 H 25.9 H ABG Total CO2 30.2 H 27.8 H ABG O2 Saturation 93.1 L Glucose Urine Protein Urine Blood - EKG Interpretation by Pa EKG shows normal: Sinus rhythm, Floyd, Intervals, QRS Complexes, ST-T Waves Critical Care Note - Critical Care Note Total time excluding time spent on procedures (mins): 60 Comments: Respiratory failure, hypercarbia, consultation with specialists
--- NOTE | 2018-01-25 10:25 | RADIOLOGY REPORT (SQ) ---
EXAM DESCRIPTION: CT ABD/PELVIS NO ORAL OR IV COMPLETED DATE/TIME: 01/25/2018 9:23 am REASON FOR STUDY: RT FLANK PAIN AND RIGHT LOWER BACK PAIN; HX OF STONES COMPARISON: CT abdomen pelvis 05/04/2017, 05/11/2017, 09/01/2017 TECHNIQUE: CT scan of the abdomen and pelvis performed without intravenous or oral contrast. Images reviewed with lung, soft tissue, and bone windows. Reconstructed coronal and sagittal MPR images revi ewed. All images stored on PACS. All CT scanners at this facility use dose modulation, iterative reconstruction, and/or weight based d osing when appropriate to reduce radiation dose to as low as reasonably achievable (ALARA). [facility]: Dose Right [facility]: CareDose [facility]: Dose Right [facility]: Teradose 4D [facility]: My Own Med RADIATION DOSE: 19.2mGy. LIMITATIONS: None. FINDINGS: Tiny 2 to 3 mm calculi are present in the distal right ureter, causing mild right hydronep hrosis, hydroureter and perinephric stranding. A 2 mm stone is seen in the distal right ureter axial image 87, a 2 mm stone is present in the right ureterovesical junction on axial image 96. Elsewhere in the right kidney, there is an intrarenal nonobstructive renal pelvis calculus 8 mm in le ngth on axial image 47. There are 2 to 3 mm calculi in the right lower pole kidney on axial image 51 . Chronic right upper pole renal parenchymal scarring is present. No right renal masses. No right renal cortical cysts. LOWER CHEST: No significant findings. No nodules or infiltrates. NON-CONTRASTED LIVER, SPLEEN, ADRENALS: Liver is dysmorphic, with a small right lobe. There is diffu se hepatic fatty infiltration with focal sparing along the gallbladder fossa. Spleen, adrenal glands unremarkable. PANCREAS: No masses. No peripancreatic inflammatory changes. GALLBLADDER: No identified stones by CT criteria. No inflammatory changes to suggest cholecystitis. RIGHT KIDNEY AND URETER: As above LEFT KIDNEY AND URETER: No suspicious masses. Assessment limited by lack of IV contrast. No signifi cant calcifications. No hydronephrosis or hydroureter. AORTA AND RETROPERITONEUM: No aneurysm. No retroperitoneal masses or adenopathy. BOWEL AND PERITONEAL CAVITY: No obvious masses or inflammatory changes. No free fluid. APPENDIX: Surgically absent PELVIS, BLADDER, AND ABDOMINAL WALL:No abnormal masses. No free fluid. Bladder normal. BONES: No significant findings. OTHER: No other significant finding. IMPRESSION: Tiny distal right ureteral calculi, causing mild right hydronephrosis and hydroureter. COMMENT: Quality ID # [id number]: Final reports with documentation of one or more dose reduction techniques (e.g., Automated exposure control, adjustment of the mA and/or kV according to patient size, use of iterative reconstruction technique) TECHNICAL DOCUMENTATION: JOB ID: [id number] [employer]- All Rights Reserved Reading location - IP/workstation name: [email or web address]
[2018-01-25] MEDS ORDERED: TAMSULOSIN HCL 0.4 MG CAP.SR.24H PO ONE (10:32)
[2018-01-25 10:36] LABS: ABSOLUTE BASOPHILS # (AUTO) 0.1 10^3/uL (0.0-0.2); ABSOLUTE EOSINOPHILS # (AUTO) 0.1 10^3/uL (0.0-0.6); ABSOLUTE LYMPHOCYTES (AUTO) 2.7 10^3/uL (0.5-4.7); ABSOLUTE MONOCYTES (AUTO) 0.8 10^3/uL (0.1-1.4); ABSOLUTE NEUT (AUTO) 5.6 10^3/uL (1.7-8.2); BASOPHILS % (AUTO) 1.4 % (0-2); EOSINOPHILS % (AUTO) 1.2 % (0-6); HEMATOCRIT 45.5 % (37.9-51.0); HEMOGLOBIN 15.2 g/dL (13.5-17.0); LYMPHOCYTES % (AUTO) 29.2 % (13-45); MEAN CORPUSCULAR HEMOGLOBIN 30.2 pg (27.0-33.4); MEAN CORPUSCULAR HGB CONC 33.4 g/dL (32.0-36.0); MEAN CORPUSCULAR VOLUME 91 fl (80-97); MONOCYTES % (AUTO) 8.1 % (3-13); PLATELET COUNT 263 10^3/uL (150-450); RED BLOOD COUNT 5.03 10^6/uL (4.35-5.55); RED CELL DISTRIBUTION WIDTH 14.8 % (11.5-14.0); SEGMENTED NEUTROPHILS % (AUTO) 60.1 % (42-78); TOTAL CELLS COUNTED % (AUTO) 100 %; WHITE BLOOD COUNT 9.3 10^3/uL (4.0-10.5)
[2018-01-25 10:38] LABS: APPEARANCE,URINE CLOUDY; BILIRUBIN,URINE NEGATIVE (NEGATIVE); CALCIUM OXALATE CRYSTALS,URINE FEW /HPF; GLUCOSE, URINE NEGATIVE (NEGATIVE); KETONES,URINE NEGATIVE (NEGATIVE); LEUKOCYTE ESTERASE,URINE NEGATIVE (NEGATIVE); NITRITE,URINE NEGATIVE (NEGATIVE); PROTEIN,URINE 100 mg/dL (NEGATIVE); URINE SPECIFIC GRAVITY 1.027; UROBILINOGEN,URINE NEGATIVE mg/dL (<2.0)
[2018-01-25 10:39] LABS: COLOR,URINE YELLOW
[2018-01-25 10:53] LABS: PROTHROMBIN TIME 13.7 SEC (11.4-15.4)
[2018-01-25 10:56] LABS: ALANINE AMINOTRANSFERASE 47 U/L (21-72); ALBUMIN 3.9 g/dL (3.5-5.0); ALKALINE PHOSPHATASE 79 U/L (38-126); ANION GAP 11 (5-19); ASPARTATE AMINO TRANSFERASE 25 U/L (17-59); BILIRUBIN,DIRECT 0.3 mg/dL (0.0-0.4); BILIRUBIN,TOTAL 0.4 mg/dL (0.2-1.3); BLOOD UREA NITROGEN 18 mg/dL (7-20); CALCIUM 9.4 mg/dL (8.4-10.2); CARBON DIOXIDE 24 mmol/L (22-30); CHLORIDE 106 mmol/L (98-107); GLUCOSE 174 mg/dL (75-110); POTASSIUM 4.2 mmol/L (3.6-5.0); SODIUM 141.1 mmol/L (137-145); TOTAL PROTEIN 7.2 g/dL (6.3-8.2)
[2018-01-25 11:31] LABS: ARTERIAL BLOOD BASE EXCESS -2.6 mmol/L; ARTERIAL BLOOD H2CO3 2.25 mmol/L (1.05-1.35); ARTERIAL BLOOD HCO3 27.9 mmol/L (20-24); ARTERIAL BLOOD O2 SATURATION 93.1 % (94-98); ARTERIAL BLOOD PO2 82.9 mmHg (80-100); ARTERIAL BLOOD TOTAL CO2 30.2 mmol/L (23-27)
[2018-01-25 11:32] LABS: ARTERIAL BLOOD FIO2 4L; ARTERIAL BLOOD PCO2 74.7 mmHg (35-45); ARTERIAL BLOOD PH 7.19 (7.35-7.45)
[2018-01-25 14:11] LABS: ARTERIAL BLOOD FIO2 45%; ARTERIAL BLOOD H2CO3 1.89 mmol/L (1.05-1.35); ARTERIAL BLOOD HCO3 25.9 mmol/L (20-24); ARTERIAL BLOOD O2 SATURATION 96.6 % (94-98); ARTERIAL BLOOD PCO2 62.8 mmHg (35-45); ARTERIAL BLOOD PH 7.23 (7.35-7.45); ARTERIAL BLOOD PO2 103.2 mmHg (80-100); ARTERIAL BLOOD TOTAL CO2 27.8 mmol/L (23-27)
--- NOTE | 2018-01-25 14:27 | RADIOLOGY REPORT (SQ) ---
EXAM DESCRIPTION: CHEST SINGLE VIEW COMPLETED DATE/TIME: 01/25/2018 2:14 pm REASON FOR STUDY: sob COMPARISON: 03/13/2017 EXAM PARAMETERS: NUMBER OF VIEWS: One view. TECHNIQUE: Single frontal radiographic view of the chest acquired. RADIATION DOSE: NA LIMITATIONS: None. FINDINGS: LUNGS AND PLEURA: No opacities, masses or pneumothorax. No pleural effusion. MEDIASTINUM AND HILAR STRUCTURES: No masses. Contour normal. HEART AND VASCULAR STRUCTURES: Borderline heart size. No pulmonary edema. BONES: No acute findings. HARDWARE: None in the chest. OTHER: No other significant finding. IMPRESSION: Borderline heart size with no pulmonary edema. TECHNICAL DOCUMENTATION: JOB ID: [id number] [employer]- All Rights Reserved Reading location - IP/workstation name: [email or web address]
[2018-01-25] MEDS ORDERED: KETOROLAC TROMETHAMINE INJ/PF 30 MG/1 ML SDV IV PRN (14:29)
[2018-01-25] MEDS ORDERED: IPRATROPIUM/ALBUTEROL 0.5-2.5 MG/3 ML AMPUL NEB SCH (16:00)
[2018-01-25] MEDS ORDERED: LEVALBUTEROL HCL NEB 1.25 MG/3 ML AMPUL NEB SCH (16:00)
--- NOTE | 2018-01-25 16:21 | PDOC H&P ---
History of Present Illness Admission Date/PCP: 01/25/18 14:15 Patient complains of: Acute Right Flank Pain History of Present Illness: TWILA RYAN JR is a 52 year old male who presented to the ER with the acute onset of severe right flank pain with hematuria. He admitted several prior similar episodes and was found to have a 2 mm nephrolith in the right distal ureter on CT. His pain stopped and he was going to be discharged when he was found poorly arousable in his room. He was discovered to have acute respiratory failure with ABG's showing a pH 7.19 of and a pCO2 of 74.7. He was treated with BiPAP and subsequently he was noted to have a history of severe COPD with EFRAIN and wears CPAP with a PEEP of 14-16 most of the time at home. He was felt to be stable but concern for seeing him back to his baseline resulted in observation status placement. He is on BiPAP with treatment pressures of 20/12 at the time of exam and indicates he has no acute pain or other problem or concern, and wants to go home but he will stay overnight to be sure he is back to his usual status. Past Medical History Cardiac Medical History: Reports: Myocardial Infarction, Hyperlipidema, Hypertension, Other - EFRAIN/COPD Pulmonary Medical History: Denies: Pneumonia Neurological Medical History: Denies: Migraine, Seizures Endocrine Medical History: Reports: Diabetes Mellitus Type 2 GI Medical History: Reports: Gastroesophageal Reflux Disease, Hiatal Hernia Hematology: Denies: Sickle Cell Disease Past Surgical History Past Surgical History: Reports: Appendectomy, Cardiac Catheterization Social History Smoking Status: Unknown if Ever Smoked Family History Family History: CAD, Hypertension, Other - kidney stones Parental Family History Reviewed: Yes Children Family History Reviewed: No Sibling(s) Family History Reviewed.: Yes Medication/Allergy Home Medications: Albuterol Sulfate [Ventolin HFA MDI 18 GM] 1 - 2 puff IH Q4H PRN #1 mdi Cefdinir 300 mg PO BID #14 capsule 03/13/17 Naproxen [Naprosyn] 500 mg PO BID #14 tablet 03/23/17 Hydrocodone/Acetaminophen [Dover 5-325 mg Tablet] 1 tab PO BID PRN #10 tablet Ondansetron [Zofran Odt 4 mg Tablet] 4 mg PO Q4HP PRN #10 tab.rapdis 05/04/17 Methylprednisolone [Medrol Dosepack (4 mg/Tab) 21 Tab/Dosepak] 4 mg PO ASDIR PRN #21 tab.ds.pk 05/11/17 Prednisone [Deltasone 20 mg Tablet] 2 tab PO DAILY 4 Days tablet 06/21/17 Walker [Folding Walker] 1 each MC ASDIR PRN #1 each 06/21/17 Loperamide HCl [Imodium 2 mg Capsule] 2 mg PO Q4HP PRN #12 cap 09/01/17 Ondansetron HCl [Zofran 4 mg Tablet] 1 - 2 tab PO Q6 PRN #15 tablet 09/01/17 Hydrocodone/Acetaminophen [Dover 5-325 mg Tablet] 1 tab PO TID PRN 3 Days #9 tablet 01/25/18 Ondansetron [Zofran Odt 4 mg Tablet] 1 - 2 tab PO Q4H PRN #15 tab.rapdis Tamsulosin HCl [Flomax 0.4 mg Cap.sr] 0.4 mg PO DAILY #7 cap.sr.24h 01/25/18 Allergies/Adverse Reactions: No Known Allergies Allergy (Verified 06/21/17 13:38) Review of Systems Constitutional: ABSENT: chills, fatigue, fever(s) Eyes: ABSENT: visual disturbances, other - eye pain Ears: ABSENT: hearing changes, other - ear pain Nose, Mouth, and Throat: ABSENT: sore throat, vertigo Cardiovascular: PRESENT: dyspnea on exertion. ABSENT: chest pain, palpitations Respiratory: PRESENT: dyspnea. ABSENT: cough, hemoptysis Gastrointestinal: PRESENT: abdominal pain - right flank, nausea. ABSENT: constipation, diarrhea, dysphagia, heartburn, vomiting Genitourinary: PRESENT: difficulty urinating, hematuria. ABSENT: dysuria Musculoskeletal: ABSENT: deformity, joint swelling Integumentary: ABSENT: erythema, pruritus, rash Neurological: ABSENT: confusion, convulsions, numbness, syncope, vertigo, weakness Psychiatric: ABSENT: anxiety, depression Endocrine: ABSENT: cold intolerance, heat intolerance, polydipsia, polyphagia, polyuria Hematologic/Lymphatic: ABSENT: easy bleeding, easy bruising Allergic/Immunologic: PRESENT: other - insect bite allergy. ABSENT: seasonal rhinorrhea Physical Exam Vital Signs: Temp Pulse Resp BP Pulse Ox 14 97 01/25/18 12:05 01/25/18 12:05 General appearance: PRESENT: cooperative, mild distress, morbidly obese Head exam: PRESENT: atraumatic, normocephalic Eye exam: PRESENT: conjunctiva pink. ABSENT: nystagmus, scleral icterus Ear exam: PRESENT: normal external ear exam. ABSENT: bleeding, drainage Mouth exam: PRESENT: moist, neck supple, tongue midline Neck exam: PRESENT: full ROM. ABSENT: JVD, tracheal deviation Respiratory exam: PRESENT: clear to auscultation kourtney, symmetrical, unlabored - on BiPAP for exam Cardiovascular exam: PRESENT: RRR. ABSENT: clicks, diastolic murmur, gallop, rubs, systolic murmur Pulses: PRESENT: normal radial pulses, normal dorsalis pedis pul Vascular exam: PRESENT: normal capillary refill. ABSENT: pallor GI/Abdominal exam: PRESENT: normal bowel sounds, soft. ABSENT: distended, tenderness Rectal exam: PRESENT: deferred Extremities exam: PRESENT: full ROM. ABSENT: clubbing, joint swelling, pedal edema, tenderness Musculoskeletal exam: PRESENT: full ROM, normal inspection Neurological exam: PRESENT: alert, awake, oriented to person, oriented to place , oriented to time, oriented to situation, CN II-XII grossly intact. ABSENT: motor sensory deficit Psychiatric exam: PRESENT: appropriate affect, normal mood. ABSENT: anxious, depressed Skin exam: ABSENT: jaundice, rash, urticaria Results Impressions: Abdomen/Pelvis CT 01/25/18 00:00 IMPRESSION: Tiny distal right ureteral calculi, causing mild right hydronephrosis and hydroureter. Chest X-Ray 01/25/18 13:29 IMPRESSION: Borderline heart size with no pulmonary edema. Assessment & Plan - Diagnosis (1) [id number] respiratory failure Qualifiers: Respiratory failure complication: hypoxia and hypercapnia Qualified Code(s) : J96.21 - Acute and chronic respiratory failure with hypoxia; J96.22 - Acute and chronic respiratory failure with hypercapnia; J96.22 - Acute and chronic respiratory failure with hypercapnia; J96.22 - Acute and chronic respiratory failure with hypercapnia Is this a current diagnosis for this admission?: Yes Plan: Continue BiPAP and observe status. Observe for recovery from acidosis by rechecking ABG's. Plan DC to home tomorrow if remains stable. (2) Ureterolithiasis Is this a current diagnosis for this admission?: Yes Plan: Use Toradol 15 mg IV q 4-6hr prn pain, strain all urines. - Time Time Spent: Greater than 70 Minutes Medications reviewed and adjusted accordingly: Yes Anticipated discharge: Home Within: within 24 hours
--- NOTE | 2018-01-25 18:38 | EKG REPORT ---
SEVERITY:- ABNORMAL ECG - SINUS RHYTHM LOW VOLTAGE IN FRONTAL LEADS BORDERLINE R WAVE PROGRESSION, ANTERIOR LEADS NONSPECIFIC T ABNORMALITIES, LATERAL LEADS : Confirmed by: Shahriar Escoto MD 25-Jan-2018 18:36:52
[2018-01-25] MEDS: IPRATROPIUM/ALBUTEROL 0.5-2.5 MG/3 ML AMPUL NEB SCH (20:17)
[2018-01-26 02:34] LABS: ARTERIAL BLOOD BASE EXCESS 4.5 mmol/L; ARTERIAL BLOOD FIO2 28%; ARTERIAL BLOOD HCO3 32.4 mmol/L (20-24); ARTERIAL BLOOD O2 SATURATION 90.6 % (94-98); ARTERIAL BLOOD PCO2 63.1 mmHg (35-45); ARTERIAL BLOOD PH 7.33 (7.35-7.45); ARTERIAL BLOOD PO2 64.8 mmHg (80-100); ARTERIAL BLOOD TOTAL CO2 34.3 mmol/L (23-27)
[2018-01-26] MEDS: HEPARIN SOD (PORCINE) 5,000 UNIT/ML 1 ML SYRINGE SUBCUT SCH ×2 (04:13→08:54)
[2018-01-26 05:16] LABS: ABSOLUTE BASOPHILS # (AUTO) 0.1 10^3/uL (0.0-0.2); ABSOLUTE EOSINOPHILS # (AUTO) 0.1 10^3/uL (0.0-0.6); ABSOLUTE LYMPHOCYTES (AUTO) 1.6 10^3/uL (0.5-4.7); ABSOLUTE MONOCYTES (AUTO) 0.7 10^3/uL (0.1-1.4); ABSOLUTE NEUT (AUTO) 5.6 10^3/uL (1.7-8.2); BASOPHILS % (AUTO) 0.7 % (0-2); EOSINOPHILS % (AUTO) 1.4 % (0-6); HEMATOCRIT 40.9 % (37.9-51.0); HEMOGLOBIN 13.5 g/dL (13.5-17.0); LYMPHOCYTES % (AUTO) 19.5 % (13-45); MEAN CORPUSCULAR VOLUME 91 fl (80-97); MONOCYTES % (AUTO) 8.5 % (3-13); PLATELET COUNT 236 10^3/uL (150-450); RED CELL DISTRIBUTION WIDTH 15.1 % (11.5-14.0); SEGMENTED NEUTROPHILS % (AUTO) 69.9 % (42-78); TOTAL CELLS COUNTED % (AUTO) 100 %
[2018-01-26 05:40] LABS: ANION GAP 10 (5-19); BLOOD UREA NITROGEN 19 mg/dL (7-20); CALCIUM 9.1 mg/dL (8.4-10.2); CARBON DIOXIDE 27 mmol/L (22-30); CHLORIDE 106 mmol/L (98-107); GLUCOSE 133 mg/dL (75-110); POTASSIUM 4.1 mmol/L (3.6-5.0); SODIUM 142.5 mmol/L (137-145)
[2018-01-26] MEDS: IPRATROPIUM/ALBUTEROL 0.5-2.5 MG/3 ML AMPUL NEB SCH ×2 (08:01→13:40)
[2018-01-26] MEDS ORDERED: TAMSULOSIN HCL 0.4 MG CAP.SR.24H PO SCH (10:00)
[2018-01-26 12:55] LABS: ARTERIAL BLOOD FIO2 28%; ARTERIAL BLOOD H2CO3 1.89 mmol/L (1.05-1.35); ARTERIAL BLOOD HCO3 31.8 mmol/L (20-24); ARTERIAL BLOOD O2 SATURATION 86.7 % (94-98); ARTERIAL BLOOD PCO2 62.8 mmHg (35-45); ARTERIAL BLOOD PH 7.32 (7.35-7.45); ARTERIAL BLOOD PO2 57.1 mmHg (80-100); ARTERIAL BLOOD TOTAL CO2 33.8 mmol/L (23-27)
[2018-01-26 13:49] VITALS: BP 127/83
--- NOTE | 2018-01-26 21:09 | PDOC DISCHARGE SUMMARY ---
General - Admit/Disc Date/PCP Admission Date/Primary Care Provider: 01/25/18 14:15 Discharge Date: 01/26/18 - Discharge Diagnosis (1) Qazai-ke-ftpqmeg respiratory failure Is this a current diagnosis for this admission?: Yes Summary: His respiratory failure was iatrogenically induced when he was given Fentanyl for his ureterolithiasis pain. When the stone passed and he had no further painful stimulus he developed hypersomnolence and subsequently an acute exacerbation of his chronic respiratory failure. He was treated with CPAP/BiPAP and has shown a good response becoming normally alert and tolerant of mild activity. He was discharged to home where he will continue to use his CPAP at night and as needed throughout the day as he has in the past. (2) Ureterolithiasis Is this a current diagnosis for this admission?: Yes Summary: Acute right ureterolithiasis was his presenting diagnosis but the problem resolved in the ER as he passed a 2 mm stone prior to his hospitalization. - Additional Information Resuscitation Status: Full Code Discharge Diet: Diabetic Discharge Activity: Activity As Tolerated Prescriptions: Tamsulosin HCl [Flomax 0.4 mg Cap.sr] 0.4 mg PO DAILY 30 Days #30 cap.sr.24h Home Medications: Tamsulosin HCl [Flomax 0.4 mg Cap.sr] 0.4 mg PO DAILY 30 Days #30 cap.sr.24h 12/06 History of Present Illness History of Present Illness: TWILA RYAN JR is a 52 year old male who presented to the ER with the acute onset of severe right flank pain with hematuria. He admitted several prior similar episodes and was found to have a 2 mm nephrolith in the right distal ureter on CT. His pain stopped and he was going to be discharged when he was found poorly arousable in his room. He was discovered to have acute respiratory failure with ABG's showing a pH 7.19 of and a pCO2 of 74.7. Hospital Course Hospital Course: 01/25/18: He was treated with BiPAP and subsequently he was noted to have a history of severe COPD with EFRAIN and wears CPAP with a PEEP of 14-16 most of the time at home. He was felt to be stable but concern for seeing him back to his baseline resulted in observation status placement. He is on BiPAP with treatment pressures of 20/12 at the time of exam and indicates he has no acute pain or other problem or concern, and wants to go home but he will stay overnight to be sure he is back to his usual status. 01/26/18: Twila feels that he is back fairly close to his baseline respiratory status but the CPAP here doesn't work as well as what he uses at home. He is ready to be released and denies any further flank pain. Physical Exam Vital Signs: Temp Pulse Resp BP Pulse Ox 98.3 F 77 16 127/83 H 91 L 01/26/18 13:46 01/26/18 13:46 01/26/18 13:46 01/26/18 13:46 01/26/18 13:46 Intake & Output 01/25/18 01/26/18 01/27/18 06:59 06:59 06:59 Intake Total 118 Output Total 0 Balance 118 Weight 140 kg General appearance: PRESENT: no acute distress, cooperative, morbidly obese Head exam: PRESENT: atraumatic, normocephalic Eye exam: PRESENT: conjunctiva pink. ABSENT: scleral icterus Ear exam: PRESENT: normal external ear exam. ABSENT: drainage Mouth exam: PRESENT: neck supple, tongue midline Neck exam: ABSENT: thyromegaly, tracheal deviation Respiratory exam: PRESENT: clear to auscultation kourtney, symmetrical, other - on CPAP during exam Cardiovascular exam: PRESENT: RRR. ABSENT: clicks, diastolic murmur, gallop, rubs, systolic murmur Pulses: PRESENT: normal radial pulses, normal dorsalis pedis pul Vascular exam: PRESENT: normal capillary refill. ABSENT: pallor GI/Abdominal exam: PRESENT: normal bowel sounds, soft. ABSENT: distended, tenderness Extremities exam: ABSENT: joint swelling, pedal edema Musculoskeletal exam: PRESENT: full ROM, normal inspection Neurological exam: PRESENT: alert, awake, oriented to person, oriented to place , oriented to time, oriented to situation, CN II-XII grossly intact. ABSENT: motor sensory deficit Psychiatric exam: PRESENT: appropriate affect, normal mood Skin exam: ABSENT: erythema, pallor, urticaria Results Laboratory Results: 01/26/18 04:09 01/26/18 04:09 01/26/18 01/26/18 01/26/18 01:25 04:09 04:09 WBC 8.0 RBC 4.50 Hgb 13.5 Hct 40.9 MCV 91 MCH 30.0 MCHC 33.0 RDW 15.1 H Plt Count 236 Seg Neutrophils % 69.9 Lymphocytes % 19.5 Monocytes % 8.5 Eosinophils % 1.4 Basophils % 0.7 Absolute Neutrophils 5.6 Absolute Lymphocytes 1.6 Absolute Monocytes 0.7 Absolute Eosinophils 0.1 Absolute Basophils 0.1 Carbonic Acid 1.90 H HCO3/H2CO3 Ratio 17:1 ABG pH 7.33 L ABG pCO2 63.1 H ABG pO2 64.8 L ABG HCO3 32.4 H ABG O2 Saturation 90.6 L ABG Base Excess 4.5 FiO2 28% Sodium 142.5 Potassium 4.1 Chloride 106 Carbon Dioxide 27 Anion Gap 10 BUN 19 Creatinine 1.20 Est GFR ( Amer) > 60 Est GFR (Non-Af Amer) > 60 Glucose 133 H Calcium 9.1 Magnesium 2.1 01/26/18 06:37 WBC RBC Hgb Hct MCV MCH MCHC RDW Plt Count Seg Neutrophils % Lymphocytes % Monocytes % Eosinophils % Basophils % Absolute Neutrophils Absolute Lymphocytes Absolute Monocytes Absolute Eosinophils Absolute Basophils Carbonic Acid 1.89 H HCO3/H2CO3 Ratio 16:1 ABG pH 7.32 L ABG pCO2 62.8 H ABG pO2 57.1 L ABG HCO3 31.8 H ABG O2 Saturation 86.7 L ABG Base Excess 4.0 FiO2 28% Sodium Potassium Chloride Carbon Dioxide Anion Gap BUN Creatinine Est GFR ( Amer) Est GFR (Non-Af Amer) Glucose Calcium Magnesium Impressions: Abdomen/Pelvis CT 01/25/18 00:00 IMPRESSION: Tiny distal right ureteral calculi, causing mild right hydronephrosis and hydroureter. Chest X-Ray 01/25/18 13:29 IMPRESSION: Borderline heart size with no pulmonary edema. Qualifiers - * PATIENT BEING DISCHARGED WITH ANY OF THE FOLLOWING DIAGNOSIS: No VTE patient discharged on overlapping Therapy?: Yes Plan Time Spent: Greater than 30 Minutes
== END 2018-01-26 15:30 | disposition home or self-care (01) ==
LOC: ER 05:36 → EH 14:15 → INTOOBSV 14:15 → 3N 20:32
PROVIDERS: ADMIT Internal Medicine; ATTEND Internal Medicine
DX: J96.21 Acute and chronic respiratory failure with hypoxia (principal); J96.22 Acute and chronic respiratory failure with hypercapnia; N13.2 Hydronephrosis with renal and ureteral calculous obstruction; G47.10 Hypersomnia, unspecified; I25.2 Old myocardial infarction; J44.9 Chronic obstructive pulmonary disease, unspecified; Z87.442 Personal history of urinary calculi; Z90.49 Acquired absence of other specified parts of digestive tract; Z82.49 Family history of ischemic heart disease and other diseases of the circulatory system; Z86.718 Personal history of other venous thrombosis and embolism
CPT/HCPCS: 93005; 99291; 36415 ×2; 87086; 82803 ×2; 83735; 85025 ×2; 85610; 80048; 80053; 81001; 84484; 71045; 74176; 93010; 36600 ×2; 94660 ×2; 94640 ×2; J1644; J3490; J7620 ×2

== ENCOUNTER 2018-07-06 22:00 | Emergency (ER) | payer OTHER, MEDICARE ==
--- NOTE | 2018-07-06 23:42 | RADIOLOGY REPORT (SQ) ---
EXAM DESCRIPTION: XR SACRUM COCCYX 2 OR MORE VIEWS COMPLETED DATE/TME: 07/06/2018 22:56 CLINICAL HISTORY: 52 years, Male, fall, pain COMPARISON: None. NUMBER OF VIEWS: TECHNIQUE: LIMITATIONS: None. FINDINGS: No fracture or dislocation. The sacroiliac and hip joints appear intact. IMPRESSION: No fracture or dislocation. copyright 2010 [employer]- All Rights Reserved
[2018-07-07] MEDS ORDERED: ACETAMINOPHEN 325 MG TABLET PO ONE (00:09)
--- NOTE | 2018-07-07 00:11 | ER Document Report ---
HPI - HPI Time Seen by Provider: 07/06/18 23:46 Pain Level: 4 Context: Patient is a 52-year-old morbidly obese male who presents emergency department with a chief complaint of tailbone pain. He fell twice in the past couple weeks after he was urinating in the middle the night. Both times he fell on his tailbone. He states that the pain is an aching pain. He has a multitude of chronic issues and takes multiple medications, including warfarin. He is supposed to wear CPAP at night, but states that he does not wear it all the time. He denies any bladder or bowel dysfunction. - ROS ROS below otherwise negative: Yes - CONSTITUTIONAL Constitutional: DENIES: Fever, Chills - NEURO Neurology: DENIES: Headache - REPRODUCTIVE Reproductive: DENIES: : - MUSCULOSKELETAL Musculoskeletal: DENIES: Back Pain, Swelling Notes: Patient complains of coccygeal pain. - DERM Skin Color: Normal Skin Problems: None Past Medical History - Social History Smoking Status: Unknown if Ever Smoked Frequency of alcohol use: None Drug Abuse: None Family History: CAD, Hypertension, Other - kidney stones - Past Medical History Cardiac Medical History: Reports: Hx Heart Attack, Hx Hypercholesterolemia, Hx Hypertension Pulmonary Medical History: Denies: Hx Pneumonia Neurological Medical History: Denies: Hx Migraine, Hx Seizures Endocrine Medical History: Reports: Hx Diabetes Mellitus Type 2 Renal/ Medical History: Reports: Hx Kidney Stones. Denies: Hx Peritoneal Dialysis GI Medical History: Reports: Hx Gastroesophageal Reflux Disease, Hx Hiatal Hernia. Denies: Hx Ulcer Psychiatric Medical History: Denies: Hx Schizophrenia Past Surgical History: Reports: Hx Appendectomy, Hx Bowel Surgery - x4, Hx Cardiac Catheterization, Hx Cardiac Surgery, Hx Oral Surgery - Immunizations Hx Pneumococcal Vaccination: 02/19/17 Vertical Provider Document - CONSTITUTIONAL Exam Limitations: No Limitations General Appearance: Obese - INFECTION CONTROL TRAVEL OUTSIDE OF THE [place] IN LAST 30 DAYS: No - HEENT HEENT: Atraumatic - NECK Neck: Normal Inspection - RESPIRATORY Respiratory: No Respiratory Distress - CARDIOVASCULAR Cardiovascular: Regular Rate, Regular Rhythm - MUSCULOSKELETAL/EXTREMETIES Musculoskeletal/Extremeties: FROM - NEURO Level of Consciousness: Awake, Alert, Appropriate - DERM Integumentary: Warm, Dry Course - Re-evaluation Re-evalutation: 07/07/18 00:11 The patient's x-ray is negative for any acute fracture. He is driving, therefore he will be given Tylenol for his pain. He is also on Coumadin, the refore I will not be giving him any NSAIDs. I have discussed this plan with him and he is in agreement with the plan. I do not suspect patient has any life- threatening injury at this time. He does not have any loss of bladder or bowel function. He does have some hydrocodone at home. I told him he can take that medication if his pain is too severe. Verbal discharge instructions were given to the patient. They verbalized understanding. They are stable for discharge. - Vital Signs Vital signs: Temp Pulse Resp BP Pulse Ox 98.6 F 92 20 140/80 H 95 07/06/18 22:30 07/06/18 22:30 07/06/18 22:30 07/06/18 22:30 07/06/18 22:30 Discharge - Discharge Clinical Impression: Coccygeal pain, acute Condition: Stable Disposition: HOME, SELF-CARE Additional Instructions: You were seen in the emergency department for tailbone pain. Your x-ray is normal. Unfortunately due to your medications and medical issues, there is a limited amount of pain medication you can take. You can take Tylenol 1000 mg every 6 hours as needed for your pain. If you lose bladder or bowel function, or have any symptoms that are worrisome to you please return to the emergency department.
[2018-07-07 01:02] VITALS: BP 142/76
== END 2018-07-07 01:02 | disposition home or self-care (01) ==
LOC: ER 22:00
DX: M53.3 Sacrococcygeal disorders, not elsewhere classified (principal); W19.XXXA Unspecified fall, initial encounter; E66.01 Morbid (severe) obesity due to excess calories; I10 Essential (primary) hypertension; E11.9 Type 2 diabetes mellitus without complications; I25.2 Old myocardial infarction; Z79.01 Long term (current) use of anticoagulants
CPT/HCPCS: 72220; 99283

== ENCOUNTER 2018-07-11 22:44 | Emergency (ER) | payer OTHER, MEDICARE ==
[2018-07-12] MEDS ORDERED: METOCLOPRAMIDE HCL INJ/PF 10 MG/2 ML SDV IV ONE (00:50)
[2018-07-12] MEDS ORDERED: NORMAL SALINE 1000 ML 1,000 ML IV ONE (00:51)
--- NOTE | 2018-07-12 00:53 | ER Document Report ---
ED Medical Screen (RME) - General Chief Complaint: Diarrhea Stated Complaint: VOMITING,DIARRHEA Time Seen by Provider: 07/12/18 00:47 Notes: 52-year-old male coming in today with fever, nausea, vomiting, and diarrhea. Multiple people in the same household are sick. Patient with multiple medical comorbidities including type 2 diabetes. I have treated and performed a rapid initial assessment of this patient. A comprehensive ED assessment and evaluation of the patient, analysis of test results and completion of medical decision making process will be conducted by additional ED providers. PHYSICAL EXAMINATION: GENERAL: Ill-appearing LUNGS: Breath sounds clear to auscultation bilaterally and equal. No wheezes rales or rhonchi. HEART: Regular rate and rhythm without murmurs, rubs, gallops. ABDOMEN: Soft, nondistended abdomen. No guarding, no rebound. Normal bowel sounds present. No CVA tenderness bilaterally. + mild epigastric tenderness (cannot elicit thorough abd exam w/o table, however). Extremities: No cyanosis, clubbing, or edema b/l. NEUROLOGICAL: Normal speech, normal gait. PSYCH: Normal mood, normal affect. TRAVEL OUTSIDE OF THE [place] IN LAST 30 DAYS: No - Related Data Allergies/Adverse Reactions: No Known Allergies Allergy (Verified 06/21/17 13:38) Past Medical History - Past Medical History Cardiac Medical History: Reports: Hx Heart Attack, Hx Hypercholesterolemia, Hx Hypertension Pulmonary Medical History: Denies: Hx Pneumonia Neurological Medical History: Denies: Hx Migraine, Hx Seizures Endocrine Medical History: Reports: Hx Diabetes Mellitus Type 2 Renal/ Medical History: Reports: Hx Kidney Stones. Denies: Hx Peritoneal Dialysis GI Medical History: Reports: Hx Gastroesophageal Reflux Disease, Hx Hiatal Hernia. Denies: Hx Ulcer Psychiatric Medical History: Denies: Hx Schizophrenia Past Surgical History: Reports: Hx Appendectomy, Hx Bowel Surgery - x4, Hx Cardiac Catheterization, Hx Cardiac Surgery, Hx Oral Surgery - Immunizations History of Influenza Vaccine for 02/2017 - 07/2017 Season: No Physical Exam - Vital signs Vitals: Temp Pulse Resp BP Pulse Ox 100.0 F 106 H 22 H 136/90 H 94 07/11/18 23:06 07/11/18 23:06 07/11/18 23:06 07/11/18 23:06 07/11/18 23:06 Course - Vital Signs Vital signs: Temp Pulse Resp BP Pulse Ox 100.0 F 106 H 22 H 136/90 H 94 07/11/18 23:06 07/11/18 23:06 07/11/18 23:06 07/11/18 23:06 07/11/18 23:06
[2018-07-12 01:30] LABS: APPEARANCE,URINE SLIGHTLY-CLOUDY; BILIRUBIN,URINE NEGATIVE (NEGATIVE); COLOR,URINE AMBER; GLUCOSE, URINE NEGATIVE (NEGATIVE); KETONES,URINE NEGATIVE (NEGATIVE); LEUKOCYTE ESTERASE,URINE NEGATIVE (NEGATIVE); NITRITE,URINE NEGATIVE (NEGATIVE); PROTEIN,URINE 30 mg/dL (NEGATIVE); URINE SPECIFIC GRAVITY 1.026; UROBILINOGEN,URINE NEGATIVE mg/dL (<2.0)
[2018-07-12 02:02] LABS: ABSOLUTE MONOCYTES (AUTO) 0.6 10^3/uL (0.1-1.4); ABSOLUTE NEUT (AUTO) 6.6 10^3/uL (1.7-8.2); BASOPHILS % (AUTO) 0.5 % (0-2); EOSINOPHILS % (AUTO) 0.5 % (0-6); HEMATOCRIT 48.4 % (37.9-51.0); HEMOGLOBIN 16.1 g/dL (13.5-17.0); LYMPHOCYTES % (AUTO) 11.9 % (13-45); MEAN CORPUSCULAR HEMOGLOBIN 29.7 pg (27.0-33.4); MEAN CORPUSCULAR HGB CONC 33.2 g/dL (32.0-36.0); MEAN CORPUSCULAR VOLUME 90 fl (80-97); MONOCYTES % (AUTO) 6.9 % (3-13); PLATELET COUNT 265 10^3/uL (150-450); RED CELL DISTRIBUTION WIDTH 15.3 % (11.5-14.0); SEGMENTED NEUTROPHILS % (AUTO) 80.2 % (42-78); TOTAL CELLS COUNTED % (AUTO) 100 %; WHITE BLOOD COUNT 8.2 10^3/uL (4.0-10.5)
[2018-07-12 02:07] LABS: BLOOD UREA NITROGEN 18 mg/dL (7-20); CALCIUM 9.3 mg/dL (8.4-10.2); CARBON DIOXIDE 25 mmol/L (22-30); CHLORIDE 104 mmol/L (98-107); GLUCOSE 163 mg/dL (75-110); POTASSIUM 4.2 mmol/L (3.6-5.0); SODIUM 140.7 mmol/L (137-145)
[2018-07-12 02:08] LABS: ALANINE AMINOTRANSFERASE 38 U/L (21-72); ALBUMIN 4.3 g/dL (3.5-5.0); ALKALINE PHOSPHATASE 86 U/L (38-126); ANION GAP 12 (5-19); ASPARTATE AMINO TRANSFERASE 28 U/L (17-59); BILIRUBIN,DIRECT 0.2 mg/dL (0.0-0.4); BILIRUBIN,TOTAL 0.9 mg/dL (0.2-1.3); LIPASE 72.5 U/L (23-300); TOTAL PROTEIN 7.3 g/dL (6.3-8.2)
[2018-07-12] MEDS ORDERED: METOCLOPRAMIDE HCL INJ/PF 10 MG/2 ML SDV ONE (03:35)
[2018-07-12] MEDS ORDERED: ACETAMINOPHEN 325 MG TABLET PO ONE (04:19)
[2018-07-12] MEDS ORDERED: ONDANSETRON ODT 4 MG TAB (6 TAB/ER DISP) PO PRN (04:19)
--- NOTE | 2018-07-12 04:23 | ER Document Report ---
ED General - General Chief Complaint: Diarrhea Stated Complaint: VOMITING,DIARRHEA Time Seen by Provider: 07/12/18 00:47 Notes: Patient is a 52-year-old male presents with complaints of some nausea vomiting and diarrhea. Multiple family members have had similar symptoms at home. He denies any blood in his stool. No blood in his emesis. He was seen in triage and fluids and Reglan were ordered. He says he is feeling improved after receiving the Reglan and fluids. He is a longer nauseous. He denies abdominal pain at this time. He does have a history of partial colon resection due to diverticulitis. He is a diabetic. TRAVEL OUTSIDE OF THE [place] IN LAST 30 DAYS: No - Related Data Allergies/Adverse Reactions: No Known Allergies Allergy (Verified 06/21/17 13:38) Past Medical History - Social History Smoking Status: Former Smoker Chew tobacco use (# tins/day): No Frequency of alcohol use: None Drug Abuse: None Family History: CAD, Hypertension, Other - kidney stones Patient has suicidal ideation: No Patient has homicidal ideation: No - Past Medical History Cardiac Medical History: Reports: Hx Heart Attack, Hx Hypercholesterolemia, Hx Hypertension Pulmonary Medical History: Denies: Hx Pneumonia Neurological Medical History: Denies: Hx Migraine, Hx Seizures Endocrine Medical History: Reports: Hx Diabetes Mellitus Type 2 Renal/ Medical History: Reports: Hx Kidney Stones. Denies: Hx Peritoneal Dialysis GI Medical History: Reports: Hx Gastroesophageal Reflux Disease, Hx Hiatal Hernia. Denies: Hx Ulcer Psychiatric Medical History: Denies: Hx Schizophrenia Past Surgical History: Reports: Hx Appendectomy, Hx Bowel Surgery - x4, Hx Cardiac Catheterization, Hx Cardiac Surgery, Hx Oral Surgery - Immunizations Hx Pneumococcal Vaccination: 02/19/17 Review of Systems - Review of Systems Notes: My Normal Review Basic REVIEW OF SYSTEMS: CONSTITUTIONAL : Fever EENT: Denies eye, ear, throat, or mouth pain or symptoms. Denies nasal or sinus congestion. CARDIOVASCULAR: Denies chest pain. RESPIRATORY: Denies cough, cold, or chest congestion. Denies shortness of breath, difficulty breathing, or wheezing. GASTROINTESTINAL: Denies abdominal pain. Vomiting and diarrhea MUSCULOSKELETAL: Denies neck or back pain or joint pain or swelling. SKIN: Denies rash or skin lesions. NEUROLOGICAL: Denies altered mental status or loss of consciousness. Denies headache. Denies weakness or paralysis or loss of use of either side. Denies problems with gait or speech. Denies sensory or motor loss. ALL OTHER SYSTEMS REVIEWED AND NEGATIVE. Physical Exam - Vital signs Vitals: Temp Pulse Resp BP Pulse Ox 100.0 F 106 H 22 H 136/90 H 94 07/11/18 23:06 07/11/18 23:06 07/11/18 23:06 07/11/18 23:06 07/11/18 23:06 - Notes Notes: General Appearance: Well nourished, alert, cooperative, no acute distress, no obvious discomfort. Vitals: reviewed, See vital signs table. Head: no swelling or tenderness to the head Eyes: PERRL, EOMI, Conjuctiva clear Mouth: No decreasd moisture Throat: No tonsillar inflammation, No airway obstruction, No lymphadenopathy Lungs: No wheezing, No rales, No rhonci, No accessory muscle use, good air exchange bilaterally. Heart: Normal rate, Regular rythm, No murmur, no rub Abdomen: Normal BS, soft, No rigidity, no reproducible abdominal tenderness to palpation. Multiple abdominal scars from previous surgery., No guarding, no rebound, no abdominal masses, no organomegaly Extremities: strength 5/5 in all extremities, good pulses in all extremities, no swelling or tenderness in the extremities, no edema. Skin: warm, dry, appropriate color, no rash Neuro: speech clear, oriented x 3, normal affect, responds appropriately to questions. Course - Re-evaluation Re-evalutation: 07/12/18 04:22 At this time I feel the patient is safe to be discharged home. He received IV fluids and is received nausea medicine and says his nausea is under better control. Suspect he most likely has a viral illness causing his nausea vomiting diarrhea based on the fact that he does not have significant abdominal pain associate with the and he has multiple family members with the same symptoms. She does have a history of diverticulitis however I think is unlikely is diverticulitis at this time due to the multiple family members with the same symptoms, no leukocytosis, no reproducible pain to palpation of the abdomen. Informed him to have a low threshold to return to ER if he develops abdominal pain, has recurrent vomiting, or has blood in his stool. Patient agrees with plan and will be discharged home. Dictation of this chart was performed using voice recognition software; theref ore, there may be some unintended grammatical errors. - Vital Signs Vital signs: Temp Pulse Resp BP Pulse Ox 100.0 F 106 H 22 H 136/90 H 94 07/11/18 23:06 07/11/18 23:06 07/11/18 23:06 07/11/18 23:06 07/11/18 23:06 - Laboratory Result Diagrams: 07/12/18 01:37 07/12/18 01:37 Laboratory results interpreted by me: 07/12/18 07/12/18 07/12/18 01:07 01:37 01:37 RDW 15.3 H Seg Neutrophils % 80.2 H Lymphocytes % 11.9 L Creatinine 1.28 H Est GFR (Non-Af Amer) 59 L Glucose 163 H Urine Protein 30 H Discharge - Discharge Clinical Impression: Vomiting and diarrhea Condition: Good Disposition: HOME, SELF-CARE Additional Instructions: VOMITING: Vomiting (or nausea without vomiting) can be caused by many other different problems. It can mean that something's wrong with the stomach, such as ulcers or inflammation or the intestinal tract, such as appendicitis. But it can also be a symptom of a problem that has nothing to do with the stomach or intestines. Vomiting is common with severe headaches, earaches, tonsillitis, and kidney infections, etc. We see it with pneumonia or heart attacks. Drugs can cause nausea and vomiting. Many abdominal problems cause vomiting; for example, gallstones, kidney stones, pancreatitis, and intestinal obstruction (blocked bowels). In most cases, curing the vomiting depends on fixing the problem that caused it. For temporary relief, we may use an anti-nausea medicine. For home use, we can prescribe suppositories, chewable pills, pills that dissolve in the mouth, or liquid anti-nausea drugs. If the vomiting seems to be caused by a problem in the stomach, acid-suppressing drugs may be prescribed as well. It's important to avoid dehydration. Sip small amounts of clear liquids (soft drinks, tea, broth, etc) . Try to take fluids frequently even if you are vomiting to prevent dehydration. Take increasing amounts of fluid and when liquids are being consumed successfully, advance to small amounts of bland food (toast, soups, mashed potatoes, etc.) until you are able to resume a regular diet. Avoid aspirin, tobacco, and alcohol. If the vomiting worsens, if the problem that's making you vomit worsens, or if there's evidence of bleeding in the stomach (such as black, tarry stool, or bloody or black vomit), you should return immediately. Also, return if abdominal pain worsens or becomes localized to one area or you develop high fever. Call your doctor if you aren't improved in 24 hours. DIARRHEA, NON-SPECIFIC: Diarrhea means frequent, watery stools. There are many causes. Any problem that keeps the intestinal tract from absorbing water from the stool can lead to diarrhea. A sudden new diarrhea problem is usually caused by a virus, food sensitivity, toxic bacteria, or drugs. In this case, we expect the problem to go away soon. Testing is done only if you seem seriously ill from the diarrhea. If you have chronic diarrhea, or diarrhea that keeps coming back, we need to find out why. Chronic diarrhea can be due to inflammation of the bowels such as Crohn's disease or ulcerative colitis, food sensitivity such as intolerance to lactose or wheat protein, irritable bowel syndrome, and other problems. If your diarrhea is a significant problem but it's not clear why you have it, we'll refer you to a specialist for further testing. During an episode of diarrhea, drink small amounts (two to six ounces) of clear liquids (soft drinks, sport drinks, herb teas, broth, etc). Take fluids frequently to prevent dehydration. It's usually not a problem to take mild anti- diarrhea medication such as Kaopectate or Pepto-Bismol. As the diarrhea eases, advance to small amounts of bland food (mashed potato, toast) for 24 hours. Call the physician if blood appears in your vomit or stool, if vomiting lasts longer than 24 hours, if the abdominal pain worsens or becomes localized to one area, if you develop high fever, or if you become lightheaded and weak. INTRAVENOUS (I V) FLUIDS: As part of your care today, you received intravenous (IV) fluids. IV fluids are administered to patients who are dehydrated or to those who have certain chemical (electrolyte) abnormalities that need correcting. ANTINAUSEA MEDICATION: You have been given a medication to suppress nausea and vomiting. This type of medication can be given as a shot, pill, or suppository. It will usually last for many hours. Pills and shots usually last six to eight hours. For the typical illness, only one or two doses of the medication may be necessary. Mild lightheadedness may occur. This type of medicine can cause drowsiness. Do not drive or operate dangerous machinery while under its influence. Do not mix with alcohol. See your doctor at once if you have muscle spasms or tightness, or uncontrollable motions (particularly of the neck, mouth, or jaw). Persistent vomiting or severe lightheadedness should also be evaluated by the physician. FOLLOW-UP CARE: If you have been referred to a physician for follow-up care, call the physicians office for an appointment as you were instructed or within the next two days. If you experience worsening or a significant change in your symptoms, notify the physician immediately or return to the Emergency Department at any time for re-evaluation. Please rest over the next 24 hours. Please focus on staying hydrated and d rinking non-caffeinated liquids. Please keep a close eye on your blood sugars. Please follow-up with your doctor in 1-2 days for reevaluation. Please return to ER immediately if you have fevers, abdominal pain, bloody stool, recurrent vomiting despite the Zofran, or if you feel that you are worsening in any way. Prescriptions: Ondansetron [Zofran Odt 4 mg Tablet] 1 tab PO Q4H PRN #15 tab.rapdis PRN Reason: For Nausea/Vomiting
[2018-07-12 06:06] VITALS: BP 117/77
== END 2018-07-12 04:55 | disposition home or self-care (01) ==
LOC: ER 22:44
DX: R19.7 Diarrhea, unspecified (principal); R11.2 Nausea with vomiting, unspecified; R50.9 Fever, unspecified; E11.9 Type 2 diabetes mellitus without complications; I10 Essential (primary) hypertension; Z90.49 Acquired absence of other specified parts of digestive tract; Z87.19 Personal history of other diseases of the digestive system; Z87.891 Personal history of nicotine dependence
CPT/HCPCS: 99284; 96361; 96374; 36415; 83690; 85025; 80053; 81001; J2765; J7030

== ENCOUNTER 2018-11-06 05:01 | Emergency (ER) | payer MEDICARE, OTHER ==
[2018-11-06 05:54] LABS: ABSOLUTE EOSINOPHILS # (AUTO) 0.2 10^3/uL (0.0-0.6); ABSOLUTE LYMPHOCYTES (AUTO) 1.1 10^3/uL (0.5-4.7); ABSOLUTE MONOCYTES (AUTO) 0.5 10^3/uL (0.1-1.4); ABSOLUTE NEUT (AUTO) 7.5 10^3/uL (1.7-8.2); BASOPHILS % (AUTO) 0.4 % (0-2); EOSINOPHILS % (AUTO) 1.7 % (0-6); HEMOGLOBIN 15.1 g/dL (13.5-17.0); LYMPHOCYTES % (AUTO) 12.1 % (13-45); MEAN CORPUSCULAR HEMOGLOBIN 29.1 pg (27.0-33.4); MEAN CORPUSCULAR HGB CONC 32.9 g/dL (32.0-36.0); MEAN CORPUSCULAR VOLUME 89 fl (80-97); MONOCYTES % (AUTO) 5.2 % (3-13); PLATELET COUNT 257 10^3/uL (150-450); RED BLOOD COUNT 5.19 10^6/uL (4.35-5.55); RED CELL DISTRIBUTION WIDTH 15.2 % (11.5-14.0); SEGMENTED NEUTROPHILS % (AUTO) 80.6 % (42-78); TOTAL CELLS COUNTED % (AUTO) 100 %; WHITE BLOOD COUNT 9.3 10^3/uL (4.0-10.5)
[2018-11-06 05:58] LABS: APPEARANCE,URINE SLIGHTLY-CLOUDY; BILIRUBIN,URINE NEGATIVE (NEGATIVE); COLOR,URINE YELLOW; GLUCOSE, URINE NEGATIVE (NEGATIVE); KETONES,URINE NEGATIVE (NEGATIVE); LEUKOCYTE ESTERASE,URINE NEGATIVE (NEGATIVE); NITRITE,URINE NEGATIVE (NEGATIVE); PROTEIN,URINE 30 mg/dL (NEGATIVE); URINE SPECIFIC GRAVITY 1.023; UROBILINOGEN,URINE NEGATIVE mg/dL (<2.0)
[2018-11-06 06:10] LABS: ALANINE AMINOTRANSFERASE 29 U/L (21-72); ALKALINE PHOSPHATASE 71 U/L (38-126); ANION GAP 13 (5-19); ASPARTATE AMINO TRANSFERASE 23 U/L (17-59); BILIRUBIN,DIRECT 0.3 mg/dL (0.0-0.4); BILIRUBIN,TOTAL 0.8 mg/dL (0.2-1.3); BLOOD UREA NITROGEN 23 mg/dL (7-20); CALCIUM 9.2 mg/dL (8.4-10.2); CARBON DIOXIDE 24 mmol/L (22-30); CHLORIDE 102 mmol/L (98-107); GLUCOSE 154 mg/dL (75-110); POTASSIUM 3.5 mmol/L (3.6-5.0); SODIUM 139.3 mmol/L (137-145); TOTAL PROTEIN 7.4 g/dL (6.3-8.2)
[2018-11-06] MEDS ORDERED: NORMAL SALINE 1000 ML 1,000 ML IV ONE (08:39)
--- NOTE | 2018-11-06 09:10 | RADIOLOGY REPORT (SQ) ---
EXAM DESCRIPTION: CT ABD/PELVIS NO ORAL OR IV COMPLETED DATE/TIME: 11/06/2018 8:55 am REASON FOR STUDY: abdominal pain, recent colonoscopy COMPARISON: 01/25/2018 TECHNIQUE: CT scan of the abdomen and pelvis performed without intravenous or oral contrast. Images reviewed with lung, soft tissue, and bone windows. Reconstructed coronal and sagittal MPR images revi ewed. All images stored on PACS. All CT scanners at this facility use dose modulation, iterative reconstruction, and/or weight based d osing when appropriate to reduce radiation dose to as low as reasonably achievable (ALARA). [facility]: Dose Right [facility]: CareDose [facility]: Dose Right [facility]: Teradose 4D [facility]: Smart Clipsource RADIATION DOSE: CT Rad equipment meets quality standard of care and radiation dose reduction techniq ues were employed. CTDIvol: 19.2 mGy. DLP: 1184 mGy-cm.mGy. LIMITATIONS: None. FINDINGS: LOWER CHEST: No significant findings. No nodules or infiltrates. NON-CONTRASTED LIVER, SPLEEN, ADRENALS: Evaluation limited by lack of IV contrast. No identified sign ificant masses. There is hepatic steatosis and somewhat bulky contour of the liver. 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 PANCREAS: No masses. No peripancreatic inflammatory changes. GALLBLADDER: No identified stones by CT criteria. No inflammatory changes to suggest cholecystitis. RIGHT KIDNEY AND URETER: Partially atrophic contour with multiple cortical defects, likely related to prior obstruction or infection. No suspicious masses. Assessment limited by lack of IV contrast. Nonobstructive calculus of the inferior pole. No hydronephrosis or hydroureter. LEFT KIDNEY AND URETER: No suspicious masses. Assessment limited by lack of IV contrast. No signifi cant calcifications. No hydronephrosis or hydroureter. AORTA AND RETROPERITONEUM: No aneurysm. No retroperitoneal masses or adenopathy. BOWEL AND PERITONEAL CAVITY: Status post left hemicolectomy and appendectomy. No obvious masses or i nflammatory changes. No free fluid. APPENDIX: Surgically absent. PELVIS, BLADDER, AND ABDOMINAL WALL:No abnormal masses. No free fluid. Bladder normal. BONES: No significant findings. OTHER: No other significant finding. IMPRESSION: 1. No acute noncontrast CT findings to explain abdominal pain. 2. Hepatic steatosis and a bulky contour of the liver suggestive of chronic parenchymal liver diseas e. Correlate with biochemical findings. 3. Partially atrophic contour of the right kidney with multiple cortical defects, likely related to prior obstruction or infection. Nonobstructive calculus of the inferior pole. No hydronephrosis. 4. Postoperative findings of left hemicolectomy. 5. Abnormal, multinodular contour of the spleen, possibly sequelae of prior trauma. COMMENT: Quality ID # [id number]: Final reports with documentation of one or more dose reduction techniques (e.g., Automated exposure control, adjustment of the mA and/or kV according to patient size, use of iterative reconstruction technique) TECHNICAL DOCUMENTATION: JOB ID: [id number] [employer]- All Rights Reserved Reading location - IP/workstation name: [email or web address]
[2018-11-06] MEDS ORDERED: POTASSIUM CHLORIDE 10 MEQ CAPSULE.ER PO ONE (11:24)
[2018-11-06] MEDS ORDERED: MORPHINE SULFATE 10 MG/ML INJ IV ONE (11:26)
[2018-11-06] MEDS ORDERED: ONDANSETRON HCL INJ/PF 4 MG/2 ML SDV IV ONE (11:26)
--- NOTE | 2018-11-06 11:28 | ER Document Report ---
ED General - General Chief Complaint: Diarrhea Stated Complaint: DIARRHEA Time Seen by Provider: 11/06/18 08:25 Primary Care Provider: IAN,KATALINA [Primary Care Provider] - Follow up as needed Information source: Patient TRAVEL OUTSIDE OF THE [place] IN LAST 30 DAYS: No - HPI Notes: 53-year-old male to the emergency department with complaints of lower abdominal pain and diarrhea for the past 3 days. He admits to several episodes of watery diarrhea every day. He denies blood in his diarrhea. He denies vomiting; he does report nausea. He has a history of diverticulitis for which he had to have a colon resection in 2007. He denies recent travel, recent antibiotic use, recent change in diet. Denies chest pain, shortness of breath, leg edema, heada marce. - Related Data Allergies/Adverse Reactions: No Known Allergies Allergy (Verified 06/21/17 13:38) Past Medical History - General Information source: Patient - Social History Smoking Status: Former Smoker Chew tobacco use (# tins/day): No Frequency of alcohol use: Occasional Drug Abuse: None Lives with: Family Family History: CAD, Hypertension, Other - kidney stones Patient has suicidal ideation: No Patient has homicidal ideation: No - Past Medical History Cardiac Medical History: Reports: Hx Heart Attack, Hx Hypercholesterolemia, Hx Hypertension Pulmonary Medical History: Denies: Hx Pneumonia Neurological Medical History: Denies: Hx Migraine, Hx Seizures Endocrine Medical History: Reports: Hx Diabetes Mellitus Type 2 Renal/ Medical History: Reports: Hx Kidney Stones. Denies: Hx Peritoneal Dialysis GI Medical History: Reports: Hx Gastroesophageal Reflux Disease, Hx Hiatal Hernia. Denies: Hx Ulcer Psychiatric Medical History: Denies: Hx Schizophrenia Past Surgical History: Reports: Hx Appendectomy, Hx Bowel Surgery - x4, Hx Cardiac Catheterization, Hx Cardiac Surgery, Hx Oral Surgery - Immunizations Hx Pneumococcal Vaccination: 02/19/17 Review of Systems - Review of Systems Constitutional: Malaise. denies: Chills, Fever EENT: No symptoms reported Cardiovascular: denies: Chest pain, Palpitations, Syncope, Dizziness, Lightheaded, Edema Respiratory: denies: Cough, Short of breath Gastrointestinal: Abdominal pain, Diarrhea, Nausea. denies: Vomiting Genitourinary: denies: Frequency, Flank pain Musculoskeletal: No symptoms reported Skin: No symptoms reported Neurological/Psychological: No symptoms reported -: Yes All other systems reviewed and negative Physical Exam - Vital signs Vitals: Temp Pulse BP Pulse Ox 98.3 F 80 105/56 L 98 11/06/18 05:09 11/06/18 05:09 11/06/18 05:09 11/06/18 05:09 Interpretation: Normal - General General appearance: Appears well In distress: None - HEENT Head: Normocephalic, Atraumatic Eyes: Normal Pupils: PERRL - Respiratory Respiratory status: No respiratory distress Chest status: Nontender Breath sounds: Normal Chest palpation: Normal - Cardiovascular Rhythm: Regular Heart sounds: Normal auscultation Murmur: No - Abdominal Inspection: Morbidly Obese, Other - Healed surgical incision sites to the midline abdomen and to the right upper and right lower abdomen Distension: No distension Bowel sounds: Normal Tenderness: Tender - Mild diffuse tenderness to palpation, with no guarding, no rebound, CVA tenderness Organomegaly: No organomegaly - Extremities General upper extremity: Normal inspection, Nontender, Normal color, Normal ROM, Normal temperature General lower extremity: Normal inspection, Nontender, Normal color, Normal ROM, Normal temperature, Normal weight bearing. No: Mahendra's sign - Neurological Neuro grossly intact: Yes Cognition: Normal Orientation: AAOx4 Derek Coma Scale Eye Opening: Spontaneous [place] Coma Scale Verbal: Oriented Derek Coma Scale Motor: Obeys Commands Bellflower Coma Scale Total: 15 Speech: Normal Motor strength normal: LUE, RUE, LLE, RLE Sensory: Normal - Psychological Associated symptoms: Normal affect, Normal mood - Skin Skin Temperature: Warm Skin Moisture: Dry Skin Color: Normal Course - Vital Signs Vital signs: Temp Pulse Resp BP Pulse Ox 97.4 F 90 18 118/75 98 11/06/18 11:30 11/06/18 11:30 11/06/18 11:30 11/06/18 11:30 11/06/18 11:58 - Laboratory Result Diagrams: 11/06/18 05:30 11/06/18 05:30 Laboratory results interpreted by me: 11/06/18 11/06/18 11/06/18 05:30 05:30 05:30 RDW 15.2 H Seg Neutrophils % 80.6 H Lymphocytes % 12.1 L Potassium 3.5 L BUN 23 H Creatinine 1.55 H Est GFR ( Amer) 57 L Est GFR (Non-Af Amer) 47 L Glucose 154 H Urine Protein 30 H - Transfer of Care Notes: 11/06/18 Impression: Abdominal pain, diarrhea. Noted CT scan with no evidence of acute diverticulitis. Labs are reassuring. Will encourage patient to push fluids at home, follow-up with primary care. He has had no episodes of diarrhea since arrival. He has not been vomiting. He has been tolerating p.o. Urged him to return if his symptoms worsen such as fevers, bloody diarrhea, worsening belly pain, weakness, passing out, or any other concerns. Patient and his fa nathanael is bedside agree with the plan. Will discharge home. Discharge - Discharge Clinical Impression: Diarrhea Condition: Stable Disposition: HOME, SELF-CARE Instructions: Diarrhea, Nonspecific ([facility]) Additional Instructions: FOLLOW UP WITH YOUR PRIMARY CARE BY THE END OF THE WEEK. TAKE MEDICINES PRESCRIBED. PUSH FLUIDS. REST AT HOME. RETURN IF WORSENING ABD PAIN, FEVERS, BLOODY DIARRHEA, WEAKNESS, PASSING OUT, CHEST PAIN, SHORTNESS OF BREATH. Prescriptions: Ondansetron [Zofran Odt 4 mg Tablet] 1 - 2 tab PO Q4HP PRN #10 tab.rapdis PRN Reason: Dicyclomine HCl [Bentyl 10 mg Capsule] 1 cap PO TID #30 cap Referrals: [facility] [Primary Care [facility]] - Follow up as needed
[2018-11-06] MEDS ORDERED: POTASSI CL 20 MEQ/50 ML RIDER 20 MEQ/50 ML RTUPB IV SCH (11:30)
[2018-11-06 11:34] VITALS: BP 118/75
== END 2018-11-06 11:59 | disposition home or self-care (01) ==
LOC: ER 05:01
DX: R19.7 Diarrhea, unspecified (principal); R10.30 Lower abdominal pain, unspecified; R11.0 Nausea; E78.00 Pure hypercholesterolemia, unspecified; I10 Essential (primary) hypertension; E11.9 Type 2 diabetes mellitus without complications; Z87.442 Personal history of urinary calculi; I25.2 Old myocardial infarction
CPT/HCPCS: 99284; 96360; 96361; 36415; 85025; 80053; 81001; 74176; J7030

== ENCOUNTER 2018-12-07 10:05 | Emergency (ER) | payer MEDICARE, OTHER ==
[2018-12-07 10:14] VITALS: BP 97/72
[2018-12-07] MEDS ORDERED: COLCHICINE 0.6 MG TABLET PO ONE ×2 (10:19→10:21)
--- NOTE | 2018-12-07 10:21 | ER Document Report ---
HPI - HPI Time Seen by Provider: 12/07/18 10:09 Pain Level: 3 Notes: Patient is a 53-year-old male with history of gout presenting with left ankle pain. Patient reports that it feels stressed like a gout flareup that he has had in the past. He reports significant pain. He denies any trauma. - REPRODUCTIVE Reproductive: DENIES: : Past Medical History - General Information source: Patient - Social History Smoking Status: Never Smoker Frequency of alcohol use: None Drug Abuse: None Family History: CAD, Hypertension, Other - kidney stones - Past Medical History Cardiac Medical History: Reports: Hx Heart Attack, Hx Hypercholesterolemia, Hx Hypertension Pulmonary Medical History: Denies: Hx Pneumonia Neurological Medical History: Denies: Hx Migraine, Hx Seizures Endocrine Medical History: Reports: Hx Diabetes Mellitus Type 2 Renal/ Medical History: Reports: Hx Kidney Stones. Denies: Hx Peritoneal Dialysis GI Medical History: Reports: Hx Gastroesophageal Reflux Disease, Hx Hiatal Hernia. Denies: Hx Ulcer Psychiatric Medical History: Denies: Hx Schizophrenia Past Surgical History: Reports: Hx Appendectomy, Hx Bowel Surgery - x4, Hx Cardiac Catheterization, Hx Cardiac Surgery, Hx Oral Surgery - Immunizations Hx Pneumococcal Vaccination: 02/19/17 Vertical Provider Document - CONSTITUTIONAL Notes: PHYSICAL EXAMINATION: GENERAL: Well-appearing, well-nourished and in no acute distress. HEAD: Atraumatic, normocephalic. EYES: Pupils equal round extraocular movements intact, conjunctiva are normal. ENT: Nares patent NECK: Normal range of motion LUNGS: No respiratory distress Musculoskeletal: Mild erythema noted over the ankle joint bilaterally, swelling noted, pain with range of motion. NEUROLOGICAL: Normal speech, normal gait. PSYCH: Normal mood, normal affect. SKIN: Warm, Dry, normal turgor, no rashes or lesions noted. - INFECTION CONTROL TRAVEL OUTSIDE OF THE [place] IN LAST 30 DAYS: No Course - Re-evaluation Re-evalutation: History and physical examination is consistent with acute gout flareup. Patient will be given dose of colchicine here in the emergency department and he will take another dose of 0.6 mg in 1 hour. Patient will be discharged home in stable condition, patient will follow-up with his primary care provider as needed, gout diet was discussed. Patient verbalized understanding and agreement with same. The patient's emergency department workup and current diagnosis were explained to the patient and or family. Follow-up instructions were provided. Medications if prescribed were discussed. Instructions for when to return to the emergency department including specific worrisome symptoms were discussed with the patient and/or family. - Vital Signs Vital signs: Temp Pulse Resp BP Pulse Ox 98.2 F 106 H 20 97/72 L 96 12/07/18 10:12 12/07/18 10:12 12/07/18 10:12 12/07/18 10:12 12/07/18 10:12 Discharge - Discharge Clinical Impression: Gout attack Qualifiers: Gout site: ankle Gout etiology: unspecified cause Laterality: left Qualified Code(s): M10.9 - Gout, unspecified Condition: Stable Disposition: HOME, SELF-CARE Additional Instructions: You were seen today for gout. Please take the second dose of colchicine that you were sent home with 1 hour after receiving your first dose. Take ibuprofen 600 mg with Tylenol 500 mg every 6 hours as needed for pain. Use the narcotic pain medication for severe pain only over the next 1 to 2 days. Follow-up with your primary care doctor in the next several days. Return if you have fever greater than 100.4F, worsening pain, become unable to move the knee, or have any other symptoms that are worrisome to you. Prescriptions: Hydrocodone Bit/Acetaminophen [Hydrocodon-Acetaminophen 5-325] 1 each PO Q4H #10 tablet Forms: Return to Work Referrals: [facility] [Primary Care Provider] - Follow up as needed
== END 2018-12-07 10:33 | disposition home or self-care (01) ==
LOC: ER 10:05
DX: M10.9 Gout, unspecified (principal); M25.572 Pain in left ankle and joints of left foot; E11.9 Type 2 diabetes mellitus without complications; I10 Essential (primary) hypertension
CPT/HCPCS: 99283; A9270

== ENCOUNTER 2019-01-22 01:26 | Emergency (ER) | payer OTHER, MEDICARE ==
[2019-01-22] MEDS ORDERED: COLCHICINE 0.6 MG TABLET PO ONE ×2 (02:22→02:23)
[2019-01-22] MEDS ORDERED: OXYCODONE-ACETAMINOPHEN 5-325 MG TABLET PO ONE (02:23)
--- NOTE | 2019-01-22 02:24 | ER Document Report ---
HPI - HPI Time Seen by Provider: 01/22/19 01:39 Pain Level: 5 Notes: Patient with c/o right foot pain that started yesterday. Patient reports hx of gout and states that this feels similar. Patiemt denies any recent injury or trauma. Denies any illness or fever. - REPRODUCTIVE Reproductive: DENIES: : Past Medical History - General Information source: Patient - Social History Smoking Status: Never Smoker Frequency of alcohol use: None Drug Abuse: None Family History: CAD, Hypertension, Other - kidney stones Patient has suicidal ideation: No Patient has homicidal ideation: No - Past Medical History Cardiac Medical History: Reports: Hx Heart Attack, Hx Hypercholesterolemia, Hx Hypertension Pulmonary Medical History: Denies: Hx Pneumonia Neurological Medical History: Denies: Hx Migraine, Hx Seizures Endocrine Medical History: Reports: Hx Diabetes Mellitus Type 2 Renal/ Medical History: Reports: Hx Kidney Stones. Denies: Hx Peritoneal Dialysis GI Medical History: Reports: Hx Gastroesophageal Reflux Disease, Hx Hiatal Hernia. Denies: Hx Ulcer Psychiatric Medical History: Denies: Hx Schizophrenia Past Surgical History: Reports: Hx Appendectomy, Hx Bowel Surgery - x4, Hx Cardiac Catheterization, Hx Cardiac Surgery, Hx Oral Surgery - Immunizations Hx Pneumococcal Vaccination: 02/19/17 Vertical Provider Document - CONSTITUTIONAL Notes: PHYSICAL EXAMINATION: GENERAL: Well-appearing, well-nourished and in no acute distress. HEAD: Atraumatic, normocephalic. EYES: Pupils equal round extraocular movements intact, conjunctiva are normal. ENT: Nares patent NECK: Normal range of motion LUNGS: No respiratory distress Musculoskeletal: Normal range of motion, strong dorsalis pedis pulse to bilateral feet. NEUROLOGICAL: Normal speech, normal gait. PSYCH: Normal mood, normal affect. SKIN: Erythema to right 3rd, 4th and 5th digits. No rash. - INFECTION CONTROL TRAVEL OUTSIDE OF THE [place] IN LAST 30 DAYS: No Course - Re-evaluation Re-evalutation: Patients exam consistent with acute gout. Patient given appropriate medications and will be discharged home in stable condition. The patient's emergency department workup and current diagnosis were explained to the patient and or family. Follow-up instructions were provided. Medications if prescribed were discussed. Instructions for when to return to the emergency department including specific worrisome symptoms were discussed with the patient and/or family. - Vital Signs Vital signs: Temp Pulse Resp BP Pulse Ox 98.2 F 88 15 113/89 H 98 01/22/19 01:26 01/22/19 01:26 01/22/19 01:26 01/22/19 01:43 01/22/19 01:26 Discharge - Discharge Clinical Impression: Gout attack Qualifiers: Gout site: foot Gout etiology: unspecified cause Laterality: right Qualified Code(s): M10.9 - Gout, unspecified Condition: Stable Disposition: HOME, SELF-CARE Additional Instructions: You were seen today for gout. Please take the second dose of colchicine that you were sent home with 1 hour after receiving yourfirst dose. Take ibuprofen 600 mg with Tylenol 500 mg every 6 hours as needed for pain. Use the Percocet for severe pain only. Follow-up with your primary care doctor in the next several days. Return if you have fever greater than 100.4F, worsening pain, become unable to move the knee, or have any other symptoms that are worrisome to you. Prescriptions: Oxycodone HCl/Acetaminophen [Percocet 5-325 mg Tablet] 1 tab PO Q4H PRN #8 tablet PRN Reason: Referrals: [facility] [Primary [facility]] - Follow up as needed
[2019-01-22 04:24] VITALS: BP 127/78
== END 2019-01-22 04:24 | disposition home or self-care (01) ==
LOC: ER 01:26
DX: M10.9 Gout, unspecified (principal); M79.671 Pain in right foot; E78.00 Pure hypercholesterolemia, unspecified; I10 Essential (primary) hypertension; E11.9 Type 2 diabetes mellitus without complications; Z87.442 Personal history of urinary calculi; I25.2 Old myocardial infarction
CPT/HCPCS: 99283

== ENCOUNTER → 2019-07-16 | Outpatient (CLI) | payer OTHER, MEDICARE ==
[2019-07-16 09:16] LABS: INTERNATIONAL RATION (INR) 0.93; PROTHROMBIN TIME 12.5 SEC (11.4-15.4)
[2019-07-16 09:18] LABS: PARTIAL THROMBOPLASTIN TIME 24.7 SEC (23.5-35.8)
== END ==
LOC: OD 08:20
PROVIDERS: ATTEND Pain Medicine Interventional Pain Medicine
DX: G89.4 Chronic pain syndrome (principal)
CPT/HCPCS: 36415; 85610; 85730